=== PATIENT | female | born 1965 | race Caucasian/White ===

== ENCOUNTER 2017-01-06 06:59 | Day surgery (SDC) | payer BC ==
[2016-12-20 15:01] VITALS: BMI 43.0
--- NOTE | 2016-12-20 15:32 | PAT Medication Instructions ---
Service Date Dec 20, 2016. Current Home Medication List Albuterol Sulfate (Proair Respiclick), 2 PUFFS INH QID PRN for RN Bupropion Hcl Sr (Bupropion Hcl Sr), 400 MG PO QAM Cetirizine (Zyrtec), 10 MG PO QAM Dextromethorphan-Guaifenesin (Mucinex Dm), 1 TAB PO Q12 PRN for RN Fluoxetine (Prozac), 20 MG PO QAM Ibuprofen (Advil), 800 MG PO Q4-6H Lorazepam (Ativan), 1 MG PO HS PRN for Anxiety and/or Sedation Meclizine HCl (Meclizine HCl), 12.5 MG PO TID PRN for dizziness Multivitamin (Multivitamin), 1 TAB PO QAM Naproxen (Naprosyn), 1,000 MG PO PRN Omeprazole (Prilosec), 20 MG PO QAM Ondansetron Hcl (Zofran), 4 MG PO Q6 PRN for Nausea Probiotic Product (Probiotic), 1 TAB PO QAM Saline (Saline Nasal [place] ), 1 SPRY ARTURO QID PRN for PRN Topiramate (Topamax), 50 MG PO HS Zolpidem Tartrate (Ambien), 5-10 MG PO HS PRN for Sleep Medication Instructions For Your Scheduled Surgery Albuterol Sulfate (Proair Respiclick), 2 PUFFS INH QID PRN for RN (was given for bronchitis- no longer uses) Meclizine HCl (Meclizine HCl), 12.5 MG PO TID PRN for dizziness (not taking currently) - Hold the following medications 7-10 days prior to surgery per surgeon instructions: Naproxen (Naprosyn), 1,000 MG PO PRN Ibuprofen (Advil), 800 MG PO Q4-6H - Hold the following medications the morning of surgery: Probiotic Product (Probiotic), 1 TAB PO QAM Multivitamin (Multivitamin), 1 TAB PO QAM Cetirizine (Zyrtec), 10 MG PO QAM Dextromethorphan-Guaifenesin (Mucinex Dm), 1 TAB PO Q12 PRN for RN - Take the following medications the morning of surgery with a sip of water: Saline (Saline Nasal [place] ), 1 SPRY ARTURO QID PRN for PRN Omeprazole (Prilosec), 20 MG PO QAM Ondansetron Hcl (Zofran), 4 MG PO Q6 PRN for Nausea (only if needed) Fluoxetine (Prozac), 20 MG PO QAM Bupropion Hcl Sr (Bupropion Hcl Sr), 400 MG PO QAM Tylenol (if needed) - Take the following medications as scheduled the night before surgery: Zolpidem Tartrate (Ambien), 5-10 MG PO HS PRN for Sleep Topiramate (Topamax), 50 MG PO HS Saline (Saline Nasal [place] ), 1 SPRY ARTURO QID PRN for PRN Lorazepam (Ativan), 1 MG PO HS PRN for Anxiety and/or Sedation Ondansetron Hcl (Zofran), 4 MG PO Q6 PRN for Nausea (only if needed) Dextromethorphan-Guaifenesin (Mucinex Dm), 1 TAB PO Q12 PRN for RN Tylenol (if needed) If you have any questions please call us at [phone] or [phone] ( [place]) or [phone]
[~2017-01-06] VITALS: Ht 167.6 cm; Wt 114.0 kg
[~2017-01-06 06:59] MED LIST: ALBU18002 INH; ANT25 PO; ATV/1 PO; BUPR-269 PO; CEFAZOLIN 3000 MG/65 ML D5W IV SCH; CETI10TA84 PO; DEXT30TA7 PO; FLUO20CA35 PO; IBUP-1050 PO; LACTATED RINGER'S 1000ML 1,000 ML IV SCH; MISCCAP80 PO; MULT-506 PO; NAPR-1169 PO; ONDA4TAB46 PO; PRLSR20 PO; SALI1SPR15 NAE; TOPI25TA10 PO; ZOLP5TAB PO
[2017-01-06] MEDS ORDERED: ACET-1256 PO (07:20)
[2017-01-06 07:22] VITALS: BP 123/63; PULSE 80; TEMP 36.8; O2SAT 96; Ht 167.6 cm; Wt 114.0 kg
[2017-01-06] MEDS ORDERED: FENTANYL CITRATE INJ 50 MCG/1 ML 2 ML VIAL ONE (07:30)
[2017-01-06] MEDS ORDERED: MIDAZOLAM HCL 1 MG/ML 2ML VIAL ONE (07:30)
--- NOTE | 2017-01-06 08:24 | History & Physical Bridge Note ---
H&P Re-Evaluation Bridge Note: I have examined the patient, reviewed the History & Physical and in the interval since the performance of the History & Physical I have noted the following changes of clinical significance: No changes noted
[2017-01-06] MEDS ORDERED: BUPIVACAINE 0.5 % 5 MG/1 ML MPF 30ML VIAL ONE (08:46)
[2017-01-06] MEDS ORDERED: HEPARIN SOD (PORCINE) 1000 UNIT/ML 10 ML VIAL ONE (08:46)
[2017-01-06] MEDS: CEFAZOLIN SOD 1 GM VIAL ONE ×2 (09:08→10:31)
[2017-01-06] MEDS ORDERED: ATROPINE SULFATE 0.1 MG/ML 5ML SYR IV PRN (09:30)
[2017-01-06] MEDS ORDERED: PROMETHAZINE HCL INJ 6.25 MG in SODIUM CHLORIDE 0.9% 50ML 50 ML IV PRN (09:30)
[2017-01-06] MEDS ORDERED: EpHEDrine SULFATE INJ 50 MG/ML AMP IV PRN (09:30)
[2017-01-06] MEDS ORDERED: ONDANSETRON INJ 2 MG/ML 2 ML VIAL IV PRN ×2 (09:30→10:45)
[2017-01-06] MEDS ORDERED: DEXAMETHASONE SOD INJ 4 MG/ML VIAL ONE (09:50)
[2017-01-06] MEDS ORDERED: KETOROLAC TROMETHAMINE 30 MG/ML VIAL ONE (09:50)
[2017-01-06] MEDS ORDERED: NEOSTIGMINE METHYLSULFATE 5 MG/5 ML SYR ONE (09:50)
[2017-01-06] MEDS ORDERED: ROCURONIUM BROMIDE 10 MG/ML 5 ML VIAL ONE (09:50)
[2017-01-06] MEDS ORDERED: PROPOFOL IV EMULSION 10 MG/ML 20 ML VIAL IV ONE (09:50)
[2017-01-06] MEDS ORDERED: ONDANSETRON INJ 2 MG/ML 2 ML VIAL ONE (09:50)
[2017-01-06] MEDS ORDERED: GLYCOPYRROLATE INJ 0.2 MG/ML VIAL ONE (09:50)
[2017-01-06] MEDS ORDERED: LIDOCAINE HCL 2% 2 ML VIAL (20MG/ML) ONE (09:50)
--- NOTE | 2017-01-06 10:40 | [facility] Post Operative Brief Note ---
Immediate Operative Summary Operative Date Jan 06, 2017. Pre-Operative Diagnosis chronic cholecystitis with galbladder sludge Post-Operative Diagnosis chronic cholecystitis with galbladder sludge Procedure(s) Performed laparoscopic cholecystectomy Surgeon Dr Abel Calles Media Marketing Manager Surgeon(s) Savannah Fountain PA-C Estimated Blood Loss 7ml Findings See dictation Specimens A: Gallbladder and contents Drains None Anesthesia General Complication(s) None Disposition Recovery Room / PACU
[2017-01-06] MEDS ORDERED: SODIUM CHLORIDE 0.9% 1000ML 1,000 ML IV SCH (10:44)
[2017-01-06] MEDS ORDERED: OXYCODONE/ACETAMINOPHEN 5-325 TAB PO PRN (10:45)
--- NOTE | 2017-01-06 10:46 | Discharge Instructions ---
Discharge Instructions Date of Service Jan 06, 2017. Admission Reason for Admission: Gallbladder Sludge Discharge Discharge Diagnosis / Problem: Same Discharge Goals Goal(s): Decrease discomfort Activity Recommendations Activity Limitations: per Instructions/Follow-up section . Instructions / Follow-Up Instructions / Follow-Up Post-Surgical ~ Discharge Instructions Activity Recommendations: - lifting limitation: (10 pounds for 2 weeks), - exercise/sex/sports limit: (nonstrenuous for 2 weeks), - driving or machine use limit: (none for 1 week), - Shower/bathe limit: (may shower beginning tomorrow) Diet: - Resume previous diet SPECIAL CARE INSTRUCTIONS: - May shower in 24 hours. Let water run over area and pat dry. - Leave steri strips on for one week. - Call the surgeon's office with any questions or concerns - - (ex. temperature higher than 101 degrees F, excessive bleeding or pain). MEDICATIONS: - Resume previous medications unless instructed otherwise by your surgeon. - Ibuprofen 600 mg every 6 hours with food - Percocet 1 every 4 hours, as needed for pain FOLLOW UP VISIT: - If not already scheduled, please call the office to schedule a two week follow-up appointment. Office number Current Hospital Diet Patient's current hospital diet: Discharge Diet Recommended Diet: Regular Diet Procedures Procedures Performed: laparoscopic cholecystectomy Pending Studies Studies pending at discharge: no Medical Emergencies . Who to Call and When: Medical Emergencies: If at any time you feel your situation is an emergency, please call 911 immediately. . Non-Emergent Contact Non-Emergency issues call your: Primary Care Provider, Surgeon Call Non-Emergent contact if: your pain is worsening, wound has increased redness, wound has increased pain . "Provider Documentation" section prepared by Abel Calles. VTE Core Measure Inpt VTE Proph given/why not?: Treatment not indicated
[2017-01-06] MEDS: FENTANYL CITRATE INJ 50 MCG/1 ML 2 ML VIAL IV PRN ×4 (10:56→11:11)
--- NOTE | 2017-01-06 11:41 | Anesthesiology Progress Note ---
Anesthesia Post Op Note Date & Time Jan 06, 2017 at 11:41 Vital Signs Pain Intensity: 4 Vital Signs Past 12 Hours Date Time Temp Pulse Resp B/P Pulse Ox O2 Delivery O2 Flow Rate FiO2 01/06/17 11:30 79 18 150/86 94 Nasal Cannula 2 01/06/17 11:20 77 18 127/83 95 Nasal Cannula 2 01/06/17 11:10 82 18 147/92 97 Mask 10 01/06/17 11:00 82 18 133/86 97 Mask 10 01/06/17 10:52 36.5 83 18 127/87 96 Mask 10 01/06/17 07:22 36.8 80 20 123/63 96 Room Air Notes Mental Status: alert / awake / arousable, participated in evaluation Pt Amnestic to Procedure: Yes Nausea / Vomiting: adequately controlled Pain: adequately controlled Airway Patency, RR, SpO2: stable & adequate BP & HR: stable & adequate Hydration State: stable & adequate Anesthetic Complications: no major complications apparent
[2017-01-06 11:50] VITALS: BP 121/56; PULSE 79; TEMP 36.4; O2SAT 94
[2017-01-06 12:20] VITALS: BP 98/52; PULSE 76; O2SAT 95
[2017-01-06 12:50] VITALS: BP 104/50; PULSE 71; O2SAT 96
[2017-01-06 13:44] VITALS: BP 100/52; PULSE 80; O2SAT 95
--- NOTE | 2017-01-06 14:25 | OPERATIVE REPORT ---
DATE OF OPERATION: 01/06/2017 PREOPERATIVE DIAGNOSES: Chronic cholecystitis and gallbladder sludge. POSTOPERATIVE DIAGNOSES: Same. PROCEDURE: Laparoscopic cholecystectomy. SURGEON: Dr. Calles. TILE GRADER: Savannah Fountain PA-C. FINDINGS: The gallbladder was not dilated. There were no stones within its lumen. The cystic duct was not dilated. The liver was of normal size and contour. The visible bowel appeared normal. TECHNIQUE: The patient was given a general anesthetic and the area was prepped and draped in the usual sterile fashion. Transverse incision was made, carried down through the subcutaneous tissue to the fascia. The fascia was grasped with 2 Nolberto clamps and incised between. The posterior sheath and peritoneum were difficult to identify due to the patient's body habitus, but eventually we were able to dissect down, grasp each one of those individually, incise them and eventually, we were able to place the introducer bluntly. The abdomen was then insufflated to a pressure of 15 mmHg with carbon dioxide. The upper midline, mid clavicular, and anterior axillary introducers were placed under direct vision through small skin incisions. Traction was placed on the gallbladder beginning at the infundibulum on the lateral side, the peritoneum was opened up along the body away from the liver as well. I then worked anteriorly over the infundibulum into the triangle of Calot and dissected the gallbladder away from the liver on the medial side as well, allowing for more mobility of the infundibulum. I peeled connective tissue and lymphatics down towards the common bile duct and in doing so, I exposed the anterior surface of the cystic duct. This was then skeletonized, I was able to establish a plane behind the cystic duct and identify the cystic duct gallbladder junction. Three clips were placed on the proximal cystic duct, 1 near the gallbladder cystic duct junction and the cystic duct was divided. Further dissection was then carried out posteromedial to that in the area of the triangle of Calot, where the cystic artery was identified. This was isolated, clamped twice proximally once near the gallbladder and divided. The gallbladder was peeled off the liver bed and in doing so, there was another branch of the artery seen, draped over the body of the gallbladder. This was isolated, clamped proximally near the gallbladder and divided. The dissection of the gallbladder away from the liver was done with cautery and was done with ease. A small hole was created in the gallbladder and there was a small amount of bile spillage. The gallbladder was placed into an Endobag and brought out through the upper midline introducer with ease. That introducer was replaced and the subdiaphragmatic and subhepatic spaces were irrigated and the irrigation was removed and that was repeated until the return was clear. The gallbladder bed of the liver was inspected. There were a few areas of oozing that were easily controlled with cautery. Previously placed clips were inspected and were intact. The gallbladder bed was again inspected and there was no further bleeding. Gas was allowed to escape and removed using suction. The fascia of the umbilical introducer site was closed with interrupted 0 Vicryl and the skin of all the incisions was closed with 4-0 Monocryl in either an interrupted or running subcuticular fashion. The skin was anesthetized with 0.5% Marcaine. The skin was cleansed, dried, benzoin placed, Steri-Strips applied. Estimated blood loss was 7 mL. Sponge, needle and instrument counts were correct prior to closure. The patient tolerated surgical procedure without complication and was transferred to recovery. I attest to the content of the Intraoperative Record and any orders documented therein. Any exceptio ns are noted below.
[2017-01-06 14:50] VITALS: BP 90/53; PULSE 79; TEMP 36.5; O2SAT 93
== END 2017-01-06 15:25 | disposition home or self-care (01) ==
LOC: C.ACU 06:59
PROVIDERS: ATTEND Surgery
DX: K81.1 Chronic cholecystitis (principal); R10.11 Right upper quadrant pain; R11.0 Nausea; K82.8 Other specified diseases of gallbladder

== ENCOUNTER → 2017-05-26 | Outpatient (CLI) | payer BC ==
[~2017-05-26] MED LIST changes: -CEFAZOLIN 3000 MG/65 ML D5W IV SCH; -LACTATED RINGER'S 1000ML 1,000 ML IV SCH
--- NOTE | 2017-05-26 15:15 | DIAGNOSTIC IMAGING REPORT ---
KUB HISTORY: 51 years-old Female N20.0 Nephrolithiasis COMPARISON: IVP 10/30/2016, CT 10/28/2016 TECHNIQUE: Single supine view of the abdomen FINDINGS: Multiple bilateral nephrolithiasis redemonstrated measuring up to 3 mm. No calculi are seen along the course of either ureter. Phleboliths are again seen within the pelvis. Cholecystectomy clips are noted. The bowel gas pattern is nonobstructive. No fracture. IMPRESSION: 1. Bilateral nephrolithiasis redemonstrated without calculi seen along the course of either ureter. 2. Nonobstructive bowel gas pattern. The above report was generated using voice recognition software. It may contain grammatical, syntax or spelling errors. Electronically signed by: Romero Pierson M.D. 05/26/2017 3:14 PM Dictated Date/Time: 05/26/2017 3:12 PM
== END | disposition home or self-care (01) ==
LOC: C.RAD 14:21
PROVIDERS: ATTEND Urology
DX: N20.0 Calculus of kidney (principal)

== ENCOUNTER 2023-11-25 14:49 | Inpatient (IN) ==
[2023-11-25] MEDS ORDERED: ONDANSETRON INJ 2 MG/ML 2 ML VIAL IV STA (15:13)
[2023-11-25] MEDS ORDERED: SODIUM CHLORIDE 0.9% 500 ML IV ONE (15:13)
[2023-11-25] MEDS ORDERED: KETOROLAC TROMETHAMINE 15 MG/ML VIAL IV STA (15:17)
--- NOTE | 2023-11-25 15:18 | ED Triage Note ---
Date of Service November 25, 2023 Provider in Triage Author: Jorge Keating. History of Present Illness This patient was briefly evaluated while in triage. An abbreviated physical exam was performed. This patient is a 58-year-old Female who presents to the ED for evaluation of worsening L flank pain and nausea. Dx with 2 kidney stones last night. Took tylenol and oxycodone today without relief. No vomiting, no fevers. Physical Exam CONSTITUTIONAL: uncomfortable appearing, splinting L flank SKIN: pink, warm, dry RESPIRATORY: in no respiratory distress Initial orders for labs and / or imaging were placed and patient was placed in the waiting area until a bed is available. Please see further documentation for the full ED course.
--- NOTE | 2023-11-25 15:25 | Emergency Department Note ---
ED Provider Note History of Present Illness Chief Complaint: Kidney Stone Stated Complaint: KIDNEY STONE Time Seen by Provider: 11/25/23 15:23 Source: patient Mode of arrival: ambulatory Limitations: no limitations This patient is a 58-year-old female who presents to the emergency department for evaluation of persistent flank pain after being diagnosed with a kidney stone here last night. Patient reports that she was seen here last night and diagnosed with 2 kidney stones on the left side. She went home and was feeling okay, but states that this morning the pain came back. She tried her pain medication at home without relief. She denies any fevers/chills or vomiting. She does report a history of kidney stones and has required surgery in the past. Home Medications Medication Instructions Recorded Confirmed Type oxycodone 5 mg tablet 5 mg PO Q6H PRN pain #10 tabs 11/24/23 11/25/23 Rx Lactobacil.acidophilus-Bifido.animalis 1 cap PO DAILY 11/25/23 11/25/23 History 5 billion cell sprinkle capsule (Probiotic) albuterol sulfate 90 mcg/actuation 2 puff inhalation QID PRN 11/25/23 11/25/23 History aerosol inhaler (ProAir HFA) Shortness Of Breath Or Wheezing amitriptyline 10 mg tablet 20 mg PO HS 11/25/23 11/25/23 History bupropion HCl 100 mg tablet,12 hr 100 mg PO QAM 11/25/23 11/25/23 History sustained-release bupropion HCl 200 mg tablet,12 hr 200 mg PO QAM 11/25/23 11/25/23 History sustained-release cetirizine 10 mg tablet (Zyrtec) 10 mg PO DAILY 11/25/23 11/25/23 History cinnamon bark 500 mg capsule 500 mg PO HS 11/25/23 11/25/23 History (Cinnamon) cranberry concentrate-ascorbic 2 cap PO QAM 11/25/23 11/25/23 History acid 140 mg-100 mg capsule (Cranberry Plus Vitamin C) docusate sodium 100 mg capsule 100 mg PO DAILY 11/25/23 11/25/23 History (Colace) fluoxetine 40 mg capsule 40 mg PO QAM 11/25/23 11/25/23 History glucosamine 750 te-uzbrfktsuaa-wyj 1 tab PO 3XWK 11/25/23 11/25/23 History no1 644 mg-C 30 mg-khanh 1 mg tablet (Osteo Bi-Flex Triple Strength) lorazepam 1 mg tablet 0.5 - 1 mg PO HS PRN SLEEP/ANXIETY 11/25/23 11/25/23 History btcjyrrtlurn-atorlrpc-xpmjdk 1 tab PO HS 11/25/23 11/25/23 History tablet (Multivitamin 50 Plus tablet) omeprazole 40 mg capsule,delayed 40 mg PO DAILYBB 11/25/23 11/25/23 History release turmeric 400 mg capsule 400 mg PO HS 11/25/23 11/25/23 History Allergies Allergy/AdvReac Type Severity Reaction Status Date / Time Sulfa (Sulfonamide Allergy Intermediate HIVES Verified 11/25/23 17:38 Antibiotics) SWELLING HIGH TEMP morphine AdvReac Severe SEVERE Verified 11/25/23 17:38 MIGRAINE Past Med/Surg History Medical History FAIZAN (obstructive sleep apnea) Gastroparesis Migraine Renal stones Surgical History S/P appendectomy S/P tubal ligation H/O hand surgery "tumor excision" H/O colonoscopy " 04/02/2016 hyperplastic polyp, diverticulosis " Social History Smoking Status: Never smoker Preferred Language: Dominican Feels Safe at Home: Yes Physical Exam Vital Signs Vital Signs - 24 hr 11/25/23 15:12 11/25/23 19:05 11/25/23 19:06 Temperature 36.9 C Temperature Source Temporal Artery Scan Pulse Rate 98 H Pulse Rate [Apical] 82 79 Respiratory Rate 19 14 Respiratory Effort / Characteristics Non-Labored Spontaneous Non-Labored Spontaneous Respiratory Depth Normal Normal Respiratory Pattern Regular Regular Blood Pressure 124/64 Blood Pressure [Right Arm] 114/71 Blood Pressure Mean 84 Blood Pressure Mean [Right Arm] 85 Pulse Oximetry 92 92 94 Oxygen Delivery Method Room Air Room Air Room Air Oxygen Flow Rate Sepsis Recent Fever Within 48 Hours No Sepsis New/Unexplained Change in Mental Status N/A Sepsis Action Taken by Nursing No Action Required 11/25/23 19:33 11/25/23 19:33 Temperature Temperature Source Pulse Rate Pulse Rate [Apical] Respiratory Rate Respiratory Effort / Characteristics Respiratory Depth Respiratory Pattern Blood Pressure Blood Pressure [Right Arm] Blood Pressure Mean Blood Pressure Mean [Right Arm] Pulse Oximetry 88 L 95 Oxygen Delivery Method Room Air Nasal Cannula Oxygen Flow Rate 2 Sepsis Recent Fever Within 48 Hours Sepsis New/Unexplained Change in Mental Status Sepsis Action Taken by Nursing VITALS: Vitals are noted on the nurse's note and reviewed by myself. GENERAL: This is a 58-year-old female, in no acute distress, but slightly uncomfortable appearing. SKIN: The skin was without rashes. HEART: Regular rate and rhythm without murmurs gallops or rubs. LUNGS: Clear to auscultation bilaterally without wheezes, rales or rhonchi. ABDOMEN: Positive bowel sounds x 4. Soft, nontender to palpation. NEURO: Patient was alert and oriented to person place and time. Course Administered Medications Sodium Chloride (Nss) 1,000 mls @ 80 mls/hr IV .[id number] KENNEDY Stop: 12/25/23 17:59 Last Admin: 11/25/23 19:08 Dose: 80 mls/hr Documented By: ESTEPHANIA Discontinued Medications Sodium Chloride (Nss) 500 mls @ 999 mls/hr IV .Q31M ONE Stop: 11/25/23 15:43 Last Infusion: 11/25/23 17:50 Dose: Infused Documented By: Admin: 11/25/23 15:59 Dose: 999 mls/hr Documented By: MARIO Ceftriaxone Sodium (Rocephin) 2,000 mg in 50 mls @ 100 mls/hr IV NOW STA Stop: 11/25/23 17:26 Last Admin: 11/25/23 18:14 Dose: 100 mls/hr Documented By: TOMMIE Ketorolac Tromethamine (Ketorolac Tromethamine 15 Mg/Ml Vial) 7.5 mg IV NOW STA Stop: 11/25/23 15:18 Last Admin: 11/25/23 15:57 Dose: 7.5 mg Documented By: MARIO Ondansetron HCl (Ondansetron Inj 2 Mg/Ml 2 Ml Vial) 4 mg IV NOW STA Stop: 11/25/23 15:14 Last Admin: 11/25/23 15:57 Dose: 4 mg Documented By: MARIO Medical Decision Making Differential Diagnosis Differential diagnosis includes renal calculus, pyelonephritis, musculoskeletal pain, ruptured AAA, aortic dissection, diverticulitis, perforated viscus, bowel obstruction, biliary pathology, pancreatitis, PE, pneumonia, pneumothorax, trauma, herpes zoster, malignancy, among others. Home Medications was personally reviewed by me Laboratory Data Attestation: I reviewed the patient's lab results. 11/25/23 16:00 11/25/23 16:00 Lab Results 11/25/23 Range/Units 16:00 WBC 9.99 (4.8-10.8) K/ul RBC 4.72 (4.20-5.40) M/uL Hgb 13.1 (12.0-16.0) g/dl Hct 40.3 (37.0-47.0) % MCV 85.4 (80.0-100.0) fL MCH 27.8 (25.0-34.0) pg MCHC 32.5 (32.0-36.0) g/dL RDW Std Deviation 45.7 (36.4-46.3) fL RDW Coeff of Harsh 14.8 H (11.5-14.5) % Plt Count 233 (130-400) K/uL MPV 8.6 L (9.4-12.4) fL Immature Gran % (Auto) 0.2 % Neut % (Auto) 76.7 % Lymph % (Auto) 15.4 % Williamson % (Auto) 5.7 % Eos % (Auto) 1.6 % Baso % (Auto) 0.4 % Neut # (Auto) 7.66 H (1.40-6.50) K/uL Lymph # (Auto) 1.54 (1.20-3.40) K/uL Williamson # (Auto) 0.57 (0.11-0.59) K/uL Eos # (Auto) 0.16 (0.00-0.50) K/uL Baso # (Auto) 0.04 (0.00-0.20) K/uL Immature Gran # (Auto) 0.02 (0.01-0.20) K/uL Sodium 135 L (136-145) mmol/L Potassium 3.9 (3.5-5.1) mmol/L Chloride 104 (98-107) mmol/L Carbon Dioxide 24 (21-32) mmol/L Anion Gap 7 (3-11) BUN 20 (6-23) mg/dl Creatinine 1.63 H D (0.6-1.2) mg/dl Est Cr Clr Drug Dosing 52.6 ml/min Est GFR ( Amer) 39.8 ml/min Est GFR (Non-Af Amer) 34.4 ml/min BUN/Creatinine Ratio 12.3 (10-20) Glucose 104 H (70-99(Fasting)) mg/dl Calcium 9.3 (8.6-10.3) mg/dl Total Bilirubin 0.4 (0.2-1.0) mg/dl AST 23 (13-39) U/L ALT 25 (7-52) U/L Alkaline Phosphatase 69 (34-104) U/L Total Protein 7.4 (6.0-8.3) gm/dl Albumin 4.3 (3.4-5.0) gm/dl Globulin 3.1 (2.5-4.0) gm/dl Albumin/Globulin Ratio 1.4 (0.9-2) Imaging Data Attestation: I personally reviewed and interpreted this imaging study as follows: Radiologist's Impression: KUB X-Ray 11/25/23 15:13 KUB HISTORY: Chronic left flank pain known L ureteral stones, ongoing pain COMPARISON: CT abdomen and pelvis 11/24/2023 FINDINGS: Nonobstructive bowel gas pattern. Cholecystectomy. Renal shadows are partially obscured by bowel gas. Bilateral renal calculi redemonstrated measuring up to approximately 4 mm. 4 mm calculus of the left ureter is noted at the level of L3, similar positioning to the prior study. The 2 mm left ureteral calculus is likely just superior to this. Numerous phleboliths of the pelvis are again noted. No pneumoperitoneum or pneumatosis. No fracture. IMPRESSION: 1. No significant distal migration of the left ureteral calculi measuring up to 4 mm compared to yesterday's CT exam. 2. Bilateral nephrolithiasis. ACT 112: Negative or not required by law. The above report was generated using voice recognition software. It may contain grammatical, syntax or spelling errors. Electronically signed by: Ben Pierson M.D. 11/25/2023 4:19 PM MDM Narrative This patient is a 58-year-old female who presents to the emergency department for evaluation of continued flank pain after being diagnosed with a kidney stone last night. Patient was found to have 2 calculi in the proximal left ureter on CT scan. KUB performed today shows no movement of the stones. Creatinine mildly elevated 1.6. Patient has been treated with Toradol, fluids and Zofran in triage and did feel better after these. However, given return visit and pain uncontrolled with oral medications at home I do think patient requires admission. Case discussed with urology on-call, Dr. Rogers who agreed and will consult. Case discussed with the [facility] who agreed to evaluate the patient for further care Impression Left ureteral calculus Discharge Plan Visit Data Chief Complaint: Kidney Stone Stated Complaint: KIDNEY STONE ED Provider: Suresh Freeman ED Midlevel Provider: Tari Sam Discharge Problem: Left ureteral calculus Forms Stand Alone Forms: My [facility] Prescriptions Prescriptions: No Action fluoxetine 40 mg capsule 40 mg PO QAM cetirizine [Zyrtec] 10 mg Tablet 10 mg PO DAILY Cranberry Plus Vitamin C 140-100 mg Capsule 2 cap PO QAM omeprazole 40 mg capsule,delayed release(DR/EC) 40 mg PO DAILYBB bupropion HCl 100 mg tablet sustained-release 12 hr 100 mg PO QAM Rx Instructions: TOTAL DOSE 300 MG--TAKES WITH 200 MG TAB. amitriptyline 10 mg tablet 20 mg PO HS docusate sodium [Colace] 100 mg Capsule 100 mg PO DAILY lorazepam 1 mg Tablet 0.5 - 1 mg PO HS PRN (Reason: SLEEP/ANXIETY) albuterol sulfate [ProAir HFA] 90 mcg/actuation Hfa Aerosol Inhaler 2 puff INHALATION QID PRN (Reason: Shortness Of Breath Or Wheezing) Multivitamin 50 Plus Tablet 1 tab PO HS bupropion HCl 200 mg tablet sustained-release 12 hr 200 mg PO QAM Rx Instructions: TOTAL DOSE 300 MG--TAKES WITH 100 MG TAB. cinnamon bark [Cinnamon] 500 mg Capsule 500 mg PO HS Probiotic 5 billion cell Capsule, Sprinkle 1 cap PO DAILY Osteo Bi-Flex Triple Strength 750 mg-644 mg- 30 mg-1 mg Tablet 1 tab PO 3XWK Rx Instructions: MON, WED, & FRI turmeric 400 mg Capsule 400 mg PO HS oxycodone 5 mg tablet 5 mg PO Q6H PRN (Reason: pain) Qty: 10 0RF Rx Instructions: Initial Treatment Referrals Referrals: Abena Harden MD [Primary Care Provider] -
[2023-11-25 16:12] LABS: Basophils # (auto) 0.04 K/uL (0.00-0.20); Basophils % (auto) 0.4 %; Eosinophils # (auto) 0.16 K/uL (0.00-0.50); Eosinophils % (auto) 1.6 %; Hematocrit (blood only) 40.3 % (37.0-47.0); Hemoglobin 13.1 g/dl (12.0-16.0); Immature Granulocytes # (auto) 0.02 K/uL (0.01-0.20); Immature Granulocytes % (auto) 0.2 %; Lymphocytes # (auto) 1.54 K/uL (1.20-3.40); Lymphocytes % (auto) 15.4 %; Mean Corpuscular Hemoglobin 27.8 pg (25.0-34.0); Mean Corpuscular Hgb Conc 32.5 g/dL (32.0-36.0); Mean Corpuscular Volume 85.4 fL (80.0-100.0); Mean Platelet Volume 8.6 fL (9.4-12.4); Monocytes # (auto) 0.57 K/uL (0.11-0.59); Monocytes % (auto) 5.7 %; Neutrophils # (auto) 7.66 K/uL (1.40-6.50); Neutrophils % (auto) 76.7 %; Platelet Count 233 K/uL (130-400); RDW Coefficient of Variation 14.8 % (11.5-14.5); RDW Standard Deviation 45.7 fL (36.4-46.3); Red Blood Count 4.72 M/uL (4.20-5.40); White Blood Count 9.99 K/ul (4.8-10.8)
--- NOTE | 2023-11-25 16:20 | XRay Report ---
KUB HISTORY: Chronic left flank pain known L ureteral stones, ongoing pain COMPARISON: CT abdomen and pelvis 11/24/2023 FINDINGS: Nonobstructive bowel gas pattern. Cholecystectomy. Renal shadows are partially obscured by bowel gas. Bilateral renal calculi redemonstrated measuring up to approximately 4 mm. 4 mm calculus o f the left ureter is noted at the level of L3, similar positioning to the prior study. The 2 mm left ureteral calculus is likely just superior to this. Numerous phleboliths of the pelvis are again noted . No pneumoperitoneum or pneumatosis. No fracture. IMPRESSION: 1. No significant distal migration of the left ureteral calculi measuring up to 4 mm compared to aminat felipe's CT exam. 2. Bilateral nephrolithiasis. ACT 112: Negative or not required by law. The above report was generated using voice recognition software. It may contain grammatical, syntax o r spelling errors. Electronically signed by: eBn Pierson M.D. 11/25/2023 4:19 PM
[2023-11-25 16:26] LABS: Albumin Level 4.3 gm/dl (3.4-5.0); Bilirubin,Total 0.4 mg/dl (0.2-1.0); Calcium 9.3 mg/dl (8.6-10.3); Potassium 3.9 mmol/L (3.5-5.1)
[2023-11-25 16:32] LABS: Albumin Globulin Ratio 1.4 (0.9-2); BUN Creatinine Ratio 12.3 (10-20); Creatinine Clr Calc Pharmacy 52.6 ml/min; Est GFR (African American) 39.8 ml/min; Est GFR (Non-African American) 34.4 ml/min; Globulin 3.1 gm/dl (2.5-4.0); Total Protein 7.4 gm/dl (6.0-8.3)
[2023-11-25] MEDS ORDERED: cefTRIAXone SODIUM 2,000 MG/50 ML BAG IV STA (16:57)
[2023-11-25] MEDS ORDERED: ACETAMINOPHEN 1,000 MG/100 ML VIAL IV PRN (17:40)
[2023-11-25] MEDS ORDERED: POLYETHYLENE (MIRALAX) 17 GM PACK PO PRN (17:47)
--- NOTE | 2023-11-25 17:53 | History & Physical Report ---
Date of Service November 25, 2023 Assessment & Plan (1) Renal calculus, left: (2) Kidney stone: Plan: NADEEN on CKD (hx of CKD 3a) UTI Patient presents with left ureteral renal stone Mild left hydronephrosis Creatinine elevated 1.6, baseline about 1.1 Urine culture positive for GNB - started on ceftriaxone, will continue, follow final cultx Urology consulted cont. IVF, monitor BMP Flomax pain control, antiemetic npo after MN (3) FAIZAN (obstructive sleep apnea): Plan: FAIZAN - uses home cpap, continue hs Morbid obesity, BMI 42- lifestyle modification discussed - has appointment scheduled w/ GI/ weight management tmrw actually - will need to re-schedule, follow up as outpt Prediabetes - A1c 5.9% - diet management and plan for weight loss as above GERD, continue omeprazole Depression - cont. home meds DVT ppx - SCDs History of Present Illness Chief Complaint: Flank pain, renal colic Primary Care Provider: Abena Harden MD Patient is a 58-year-old female, morbidly obese, with history of GERD, stage III CKD, history of renal stones, history of migraine with aura, asthma, seasonal allergic rhinitis, FAIZAN, prediabetes, depression who presents with flank pain, and diagnosed with renal stone, NADEEN. Patient presented in the ED yesterday, with flank pain and CT abdomen was obtained, showing renal stone in left ureter, creatinine at that time was 1.2. UA was obtained. At that time she was discharged home with medications, and recommendations to follow-up with urology. Today she presents back to the emergency room as her pain was not controlled. She also had some nausea/ vomiting. Urine culture is positive for bacteria and she was started on Rocephin. Creatinine is now worsened at 1.6. CT also showed some mild L hydronephrosis yesterday. She denies any fever, chills, chest pain or shortness of breath. She has hx of renal stones and urological procedures in the past. ED provider contacted urology. Allergies Allergy/AdvReac Type Severity Reaction Status Date / Time Sulfa (Sulfonamide Allergy Intermediate HIVES Verified 11/25/23 17:38 Antibiotics) SWELLING HIGH TEMP morphine AdvReac Severe SEVERE Verified 11/25/23 17:38 MIGRAINE Home Medications Medication Instructions Recorded Confirmed Type oxycodone 5 mg tablet 5 mg PO Q6H PRN pain #10 tabs 11/24/23 11/25/23 Rx Lactobacil.acidophilus-Bifido.animalis 1 cap PO DAILY 11/25/23 11/25/23 History 5 billion cell sprinkle capsule (Probiotic) albuterol sulfate 90 mcg/actuation 2 puff inhalation QID PRN 11/25/23 11/25/23 History aerosol inhaler (ProAir HFA) Shortness Of Breath Or Wheezing amitriptyline 10 mg tablet 20 mg PO HS 11/25/23 11/25/23 History bupropion HCl 100 mg tablet,12 hr 100 mg PO QAM 11/25/23 11/25/23 History sustained-release bupropion HCl 200 mg tablet,12 hr 200 mg PO QAM 11/25/23 11/25/23 History sustained-release cetirizine 10 mg tablet (Zyrtec) 10 mg PO DAILY 11/25/23 11/25/23 History cinnamon bark 500 mg capsule 500 mg PO HS 11/25/23 11/25/23 History (Cinnamon) cranberry concentrate-ascorbic 2 cap PO QAM 11/25/23 11/25/23 History acid 140 mg-100 mg capsule (Cranberry Plus Vitamin C) docusate sodium 100 mg capsule 100 mg PO DAILY 11/25/23 11/25/23 History (Colace) fluoxetine 40 mg capsule 40 mg PO QAM 11/25/23 11/25/23 History glucosamine 750 ev-sxfffvvazaa-imx 1 tab PO 3XWK 11/25/23 11/25/23 History no1 644 mg-C 30 mg-khanh 1 mg tablet (Osteo Bi-Flex Triple Strength) lorazepam 1 mg tablet 0.5 - 1 mg PO HS PRN SLEEP/ANXIETY 11/25/23 11/25/23 History dqgpyfptbsmq-srgobmnp-bnpxoq 1 tab PO HS 11/25/23 11/25/23 History tablet (Multivitamin 50 Plus tablet) omeprazole 40 mg capsule,delayed 40 mg PO DAILYBB 11/25/23 11/25/23 History release turmeric 400 mg capsule 400 mg PO HS 11/25/23 11/25/23 History Past Med/Surg History Medical History FAIZAN (obstructive sleep apnea) Gastroparesis Migraine Renal stones Surgical History S/P appendectomy S/P tubal ligation H/O hand surgery "tumor excision" H/O colonoscopy " 04/02/2016 hyperplastic polyp, diverticulosis " Social History Smoking Status: Never smoker Preferred Language: Faroese Feels Safe at Home: Yes Review of Systems Review of Systems: All systems reviewed & are unremarkable except as noted in Subjective Physical Exam Constitutional: WD/WN, vitals as above (morbidly obese F in mild distress d/t pain) Eyes: PERRL, conjunctivae normal, anicteric sclerae ENMT: external ear and nose normal, oropharynx normal Neck: + thick neck Respiratory: normal respiratory effort, lungs clear to auscultation Cardiovascular: RRR, no murmur, no edema Chest (Breasts): Chest: normal inspection of chest Gastrointestinal (Abdomen): Inspection/Auscultation: normal bowel sounds Percussion/Palpation: + abdomen tender and abdomen soft obese abdomen, +LLQ pain, + L flank pain Musculoskeletal: no cyanosis or clubbing, extremities motor strength 5/5 Skin: no rashes, warm and dry Neurologic: PERRL, EOMI, accommodation nl, no face palsy, no dysarthria Psychiatric: A+Ox3, euthymic affect Lymphatic: no lymphedema Results & Data Results & Data Vital Signs (Past 12 Hours) Vital Signs Temp Pulse Resp BP Pulse Ox O2 Del Method 11/25/23 15:12 36.9 C 98 H 19 124/64 92 Room Air Laboratory Results 11/25/23 Range/Units 16:00 WBC 9.99 (4.8-10.8) K/ul RBC 4.72 (4.20-5.40) M/uL Hgb 13.1 (12.0-16.0) g/dl Hct 40.3 (37.0-47.0) % MCV 85.4 (80.0-100.0) fL MCH 27.8 (25.0-34.0) pg MCHC 32.5 (32.0-36.0) g/dL RDW Std Deviation 45.7 (36.4-46.3) fL RDW Coeff of Harsh 14.8 H (11.5-14.5) % Plt Count 233 (130-400) K/uL MPV 8.6 L (9.4-12.4) fL Immature Gran % (Auto) 0.2 % Neut % (Auto) 76.7 % Lymph % (Auto) 15.4 % [place] % (Auto) 5.7 % Eos % (Auto) 1.6 % Baso % (Auto) 0.4 % Neut # (Auto) 7.66 H (1.40-6.50) K/uL Lymph # (Auto) 1.54 (1.20-3.40) K/uL [place] # (Auto) 0.57 (0.11-0.59) K/uL Eos # (Auto) 0.16 (0.00-0.50) K/uL Baso # (Auto) 0.04 (0.00-0.20) K/uL Immature Gran # (Auto) 0.02 (0.01-0.20) K/uL Sodium 135 L (136-145) mmol/L Potassium 3.9 (3.5-5.1) mmol/L Chloride 104 (98-107) mmol/L Carbon Dioxide 24 (21-32) mmol/L Anion Gap 7 (3-11) BUN 20 (6-23) mg/dl Creatinine 1.63 H D (0.6-1.2) mg/dl Est Cr Clr Drug Dosing 52.6 ml/min Est GFR ( Amer) 39.8 ml/min Est GFR (Non-Af Amer) 34.4 ml/min BUN/Creatinine Ratio 12.3 (10-20) Glucose 104 H (70-99(Fasting)) mg/dl Calcium 9.3 (8.6-10.3) mg/dl Total Bilirubin 0.4 (0.2-1.0) mg/dl AST 23 (13-39) U/L ALT 25 (7-52) U/L Alkaline Phosphatase 69 (34-104) U/L Total Protein 7.4 (6.0-8.3) gm/dl Albumin 4.3 (3.4-5.0) gm/dl Globulin 3.1 (2.5-4.0) gm/dl Albumin/Globulin Ratio 1.4 (0.9-2) Diagnostic Findings CT abdomen/ pelvis FINDINGS: Lung bases: Unremarkable. No mass. No consolidation. ABDOMEN: Liver: Hepatic steatosis. Hepatomegaly. Small calcification in the liver. Gallbladder and bile ducts: Unremarkable. No calcified stones. No ductal dilation. Pancreas: Unremarkable. No ductal dilation. Spleen: Unremarkable. No splenomegaly. Adrenals: Stable nonspecific small left adrenal nodule. Kidneys and ureters: 2 stones in the proximal left ureter measuring approximately 2 mm and 4 mm. Mild left hydroureteronephrosis. Additional left renal stones. Small nonobstructing left renal stones. No hydronephrosis or ureteral stone on the right. Probable small right renal cyst. Stomach and bowel: Evaluation of the stomach is limited by underdistention. No mucosal thickening. No bowel obstruction or inflammation. PELVIS: Appendix: Appendix is not visualized on this exam. Bladder: Unremarkable. No stones. Reproductive: Unremarkable as visualized. ABDOMEN and PELVIS: Intraperitoneal space: Unremarkable. No free air. No significant fluid collection. Bones/joints: Degenerative changes of the spine. No acute fracture. No dislocation. Soft tissues: Small fat-containing umbilical hernia. Vasculature: Phleboliths in the pelvis. No abdominal aortic aneurysm. Lymph nodes: Unremarkable. No enlarged lymph nodes. IMPRESSION: 1. 2 stones in the proximal left ureter measuring approximately 2 mm and 4 mm. Mild left hydroureteronephrosis. Additional left renal stones. 2. Small nonobstructing left renal stones. No hydronephrosis or ureteral stone on the right. Code Status & VTE Plan VTE Prophylaxis Plan VTE Prophylaxis will be ordered: Yes
[2023-11-25] MEDS: SODIUM CHLORIDE 0.9% 1,000 ML IV SCH (19:08)
--- NOTE | 2023-11-25 19:27 | Urology Consultation ---
Date of Consultation November 25, 2023 Assessment & Plan (1) Renal calculus, left: The patient has been admitted on the hospital service. From a urologic perspective we recommend proceeding as follows: Provide analgesics provide antiemetics Follow serial labs Provide IV fluid for hydration Provide Flomax for expulsive therapy The patient has had a urine culture on 11/24/2023 that pulmonary leave shows gram-negative bacilli. She has received antibiotics in form of Rocephin thus far in the emergency department. Antibiotic should continue and can be tailored based on culture results Would recommend the patient be made n.p.o. after midnight tonight. If she continues to have issues with her kidney stones upon reevaluation tomorrow morning consideration be given to performing cystoscopy At the present time the patient is noted to be afebrile without tachycardia or hypotension. She also does not exhibit leukocytosis and therefore feel a trial of conservative passage is warranted Additional recommendations be forthcoming based on her clinical course as unfolds History of Present Illness Reason for Consultation: Nephrolithiasis History of Present Illness This is a 58-year-old female who was seen in the emergency department on 11/24/2023. At that time patient presented secondary to left flank pain that started earlier in the day. Patient had associated nausea without vomiting. She denied any fevers, shakes, or chills. She denied any dysuria or hematuria. Patient notes that she did have a history of kidney stones in the past. She has successfully passed some kidney stones without intervention but she has had cystoscopy in the past. She notes that she previously followed with Dr. Rosalino Rick when he was a member of [facility]. Patient did have plans to follow-up with [facility] urology later this month. During patient's emergency department visit on 11/24/2023 she did undergo a chest x-ray that showed no evidence of pneumonia. A CT scan of the abdomen and pelvis showed that she had 2 kidney stones in the proximal left ureter measuring 2 and 4 mm respectively. There is mild left hydronephrosis on the study. Labs during this visit include a CBC were white blood cell count, hemoglobin, hematocrit, and platelet count are all within the normal range. Chemistry profile showed sodium and potassium along with the BUN were normal. There is a slight elevation of her creatinine at 1.2. Urinalysis at this time was negative for nitrites and leukocyte Estrace. There is no significant pyuria noted but she was noted to have 2+ bacteria. The patient returned to the emergency department this evening secondary to recurrence of her left flank pain. She notes again the pain is in the left flank with some radiation to her abdomen. She denies any vomiting but did have some nausea. She denies any fevers, shakes, or chills. She had 1 episode of dysuria but denies any urinary frequency or additional dysuria. She says that her urine did appear somewhat discolored but she did not note any gross hematuria. Since patient is return to [facility] this evening she has had a KUB that showed a left ureteral kidney stone measuring up to 4 mm which correlates to the findings on the previous CT scan. Labs today include a CBC were white blood cell count, hemoglobin, hematocrit, platelet count are normal. Chemistry profile shows sodium is 135 with a normal potassium. Her BUN is noted to be normal and she had a slight increase of her creatinine to 1.6. At the time of my interview she was resting comfortably bed and she was no distress. Allergies Allergy/AdvReac Type Severity Reaction Status Date / Time Sulfa (Sulfonamide Allergy Intermediate HIVES Verified 11/25/23 17:38 Antibiotics) SWELLING HIGH TEMP morphine AdvReac Severe SEVERE Verified 11/25/23 17:38 MIGRAINE Home Medications Medication Instructions Recorded Confirmed Type oxycodone 5 mg tablet 5 mg PO Q6H PRN pain #10 tabs 11/24/23 11/25/23 Rx Lactobacil.acidophilus-Bifido.animalis 1 cap PO DAILY 11/25/23 11/25/23 History 5 billion cell sprinkle capsule (Probiotic) albuterol sulfate 90 mcg/actuation 2 puff inhalation QID PRN 11/25/23 11/25/23 History aerosol inhaler (ProAir HFA) Shortness Of Breath Or Wheezing amitriptyline 10 mg tablet 20 mg PO HS 11/25/23 11/25/23 History bupropion HCl 100 mg tablet,12 hr 100 mg PO QAM 11/25/23 11/25/23 History sustained-release bupropion HCl 200 mg tablet,12 hr 200 mg PO QAM 11/25/23 11/25/23 History sustained-release cetirizine 10 mg tablet (Zyrtec) 10 mg PO DAILY 11/25/23 11/25/23 History cinnamon bark 500 mg capsule 500 mg PO HS 11/25/23 11/25/23 History (Cinnamon) cranberry concentrate-ascorbic 2 cap PO QAM 11/25/23 11/25/23 History acid 140 mg-100 mg capsule (Cranberry Plus Vitamin C) docusate sodium 100 mg capsule 100 mg PO DAILY 11/25/23 11/25/23 History (Colace) fluoxetine 40 mg capsule 40 mg PO QAM 11/25/23 11/25/23 History glucosamine 750 gy-manndgujbdi-gwn 1 tab PO 3XWK 11/25/23 11/25/23 History no1 644 mg-C 30 mg-khanh 1 mg tablet (Osteo Bi-Flex Triple Strength) lorazepam 1 mg tablet 0.5 - 1 mg PO HS PRN SLEEP/ANXIETY 11/25/23 11/25/23 History ymrptfkbcdum-wcmvvfku-ynkfgs 1 tab PO HS 11/25/23 11/25/23 History tablet (Multivitamin 50 Plus tablet) omeprazole 40 mg capsule,delayed 40 mg PO DAILYBB 11/25/23 11/25/23 History release turmeric 400 mg capsule 400 mg PO HS 11/25/23 11/25/23 History Patient History Medical History FAIZAN (obstructive sleep apnea) Gastroparesis Migraine Renal stones Surgical History S/P appendectomy S/P tubal ligation H/O hand surgery "tumor excision" H/O colonoscopy " 04/02/2016 hyperplastic polyp, diverticulosis " Social History Smoking Status: Never smoker Preferred Language: Samoan Feels Safe at Home: Yes Review of Systems Constitutional: no fever and no chills Eyes: + corrective lenses Ear, Nose, Mouth, Throat: no hearing loss Respiratory: no cough and no dyspnea Cardiovascular: no chest pain Gastrointestinal: + abdominal pain (Radiating from left fl ank) Genitourinary: as per Subjective / HPI Musculoskeletal: + back pain (Left flank) Integumentary: no rash Neurologic: no localized weakness Physical Exam Constitutional: WD/WN, vitals as above Eyes: Wears glasses ENMT: Ears: no hearing impairment and no external ear abnormality Mouth: no oropharynx abnormality Neck: trachea midline Respiratory: normal respiratory effort; no respiratory distress and no labored breathing Cardiovascular: Rate/Rhythm: regular rate and regular rhythm Gastrointestinal (Abdomen): Soft, nondistended, with minimal pain to palpation on the left side. There is no rebound tenderness or guarding Musculoskeletal: No calf tenderness Skin: no rashes Neurologic: moves all extremities Psychiatric: A+Ox3, euthymic affect Genitourinary: No CVA tenderness on the right. Minimal CVA tenderness with percussion on the left Results & Data Vital Signs (Past 12 Hours) Vital Signs Temp Pulse Pulse Resp BP BP Pulse Ox 11/25/23 19:06 79 94 11/25/23 19:05 82 14 114/71 92 11/25/23 15:12 36.9 C 98 H 19 124/64 92 O2 Del Method 11/25/23 19:06 Room Air 11/25/23 19:05 Room Air 11/25/23 15:12 Room Air PG Care Time/CCT Total # of Minutes Spent Total Time Spent with Patient: Total time spent is greater than 50% in coordination of care (as documented) at patient's floor/unit and/or counseling patient: Coding Level of Care Code 35893 IN/OBS CONSULT LVL 5,80M Diagnoses Renal calculus, left N20.0
[2023-11-25] MEDS: TAMSULOSIN HCL 0.4 MG CAP PO SCH (20:34)
[2023-11-25] MEDS: ACETAMINOPHEN 325 MG TAB PO PRN (20:37)
[2023-11-25] MEDS ORDERED: ALBUTEROL HFA 8 GM INHALER INH PRN (21:36)
[2023-11-25] MEDS ORDERED: oxyCODONE HCL IR 5 MG TAB (IMMEDIATE RELEASE) PO PRN (21:36)
[2023-11-25 22:22] LABS: Appearance Urine Clear (Clear); Bacteria Urine Automated Negative (Negative); Bilirubin Urine Negative (Negative); Blood Urine 2+ (Negative); Cast Urine Automated 0 /lpf (0-5); Color Urine Yellow; Glucose Urine UA Negative (Negative); Ketones Urine Negative (Negative); Leukocyte Esterase Urine 1+ (Negative); Nitrite Urine Negative (Negative); Protein Urine Negative (Negative); Urobilinogen Urine Negative (Negative)
[2023-11-25] MEDS: AMITRIPTYLINE HCL 10 MG TAB PO SCH (22:32)
[2023-11-26] MEDS: ACETAMINOPHEN 325 MG TAB PO PRN (06:01)
[2023-11-26] MEDS: PANTOprazole 40 MG TAB PO SCH (06:02)
[2023-11-26] MEDS: SODIUM CHLORIDE 0.9% 1,000 ML IV SCH ×2 (07:16→21:22)
[2023-11-26 07:38] LABS: Hematocrit (blood only) 36.4 % (37.0-47.0); Hemoglobin 11.3 g/dl (12.0-16.0); Mean Corpuscular Hemoglobin 27.4 pg (25.0-34.0); Mean Corpuscular Volume 88.3 fL (80.0-100.0); Mean Platelet Volume 8.7 fL (9.4-12.4); Platelet Count 183 K/uL (130-400); RDW Coefficient of Variation 15.1 % (11.5-14.5); RDW Standard Deviation 48.6 fL (36.4-46.3); Red Blood Count 4.12 M/uL (4.20-5.40); White Blood Count 5.51 K/ul (4.8-10.8)
[2023-11-26 07:48] LABS: Calcium 8.7 mg/dl (8.6-10.3); Potassium 4.1 mmol/L (3.5-5.1)
[2023-11-26 07:53] LABS: BUN Creatinine Ratio 11.2 (10-20); Creatinine Clr Calc Pharmacy 58.1 ml/min; Est GFR (African American) 46.7 ml/min; Est GFR (Non-African American) 40.3 ml/min; Phosphorus 3.8 mg/dl (2.5-4.9)
[2023-11-26] MEDS: DOCUSATE SODIUM 100 MG CAP PO SCH (08:15)
[2023-11-26] MEDS: FLUoxetine HCL 20 MG CAP PO SCH (08:15)
[2023-11-26] MEDS: buPROPion XL 300 MG TABCR PO SCH (08:15)
[2023-11-26] MEDS: ADVANCED PROBIOTIC 1250 MG CAPSULE PO SCH (08:16)
[2023-11-26] MEDS ORDERED: buPROPion SR 100 MG TABCR PO SCH (09:00)
[2023-11-26] MEDS ORDERED: SUMAtriptan succinate 50 MG TAB PO ONE (09:38)
--- NOTE | 2023-11-26 09:54 | Urology Progress Note ---
Date of Service November 26, 2023 Assessment & Plan (1) Left ureteral calculus: (2) UTI (urinary tract infection): (3) Flank pain: Plan 58yo F admitted with intractable left flank pain, NADEEN, and concern for infection. CT abdomen pelvis from 11/24/23 showed that she had 2 stones in the proximal left ureter measuring 2 and 4 mm respectively with mild left hydronephrosis. KUB 11/25/23 shows no significant distal migration of the left ureteral calculi measuring up to 4 mm compared to prior CT exam. Afebrile and hemodynamically stable Labs No leukocytosis, creatinine 1.43 today. Continue to trend. Urine culture from 11/24/2023 preliminary with E. coli. On ceftriaxone. We discussed acute stone management with cystoscopy and stent placement. Ureteral stents were discussed as well as postoperative issues and pain management. She is aware a second procedure will be needed for stone treatment. Risks and benefits were discussed. All questions were answered. Given her left-sided pain, NADEEN, and concern for infection we will plan to proceed to OR today for cystoscopy and left ureteral stent placement. Risks and benefits were discussed as per consent. Continue supportive care and pain management as needed. Covered with scheduled IV ceftriaxone. Keep NPO. Urology will follow. Admission and Anticipated Discharge Date Admission Date: November 25, 2023 Supervising Physician Co-Signing Physician Notes Discussed patient with MELY. Agree with plan. Proceed to OR for ureteral stent placement. Subjective Patient examined at bedside this AM. Awake, resting in bed on arrival. No acute distress. Has been NPO. Denies fever, chills, nausea, vomiting. Voiding without issue. Still with left sided pain, managing with medication. Review of Systems Constitutional: as per Subjective / HPI Gastrointestinal: as per Subjective / HPI Genitourinary: as per Subjective / HPI Physical Exam Constitutional: no acute distress Respiratory: no respiratory distress and no labored breathing Neurologic: moves all extremities and awake Psychiatric: A+Ox3, euthymic affect Results & Data Vital Signs (Past 12 Hours) Vital Signs Temp Pulse Resp BP BP Pulse Ox O2 Del Method 11/26/23 07:21 36.8 C 78 18 108/63 93 CPAP 11/25/23 22:15 95 Nasal Cannula 11/25/23 21:58 36.7 C 93 H 16 130/76 91 Room Air O2 Flow Rate 11/26/23 07:21 11/25/23 22:15 2 11/25/23 21:58 PG Care Time/CCT Total # of Minutes Spent Total Time Spent with Patient: Total time spent is greater than 50% in coordination of care (as documented) at patient's floor/unit and/or counseling patient: Coding Level of Care Code 83210 SUB INP/OBS CARE 2/35MIN Diagnoses Left ureteral calculus N20.1 UTI (urinary tract infection) N39.0 Flank pain R10.9
[2023-11-26] MEDS ORDERED: HYDROmorphone INJ 0.5 MG/0.5 ML SYR IV STA (11:29)
[2023-11-26] MEDS ORDERED: HYDROmorphone INJ 0.5 MG/0.5 ML SYR IV PRN (11:31)
[2023-11-26] MEDS ORDERED: ACETAMINOPHEN 1,000 MG/100 ML VIAL IV PRN (11:31)
[2023-11-26] MEDS ORDERED: HYDROmorphone INJ 0.5 MG/0.5 ML SYR ONE (11:33)
[2023-11-26] MEDS ORDERED: oxyCODONE HCL IR 5 MG TAB (IMMEDIATE RELEASE) PO STA (11:51)
--- NOTE | 2023-11-26 13:17 | Hospitalist Progress Note ---
Date of Service November 26, 2023 Assessment & Plan (1) Flank pain: (2) UTI (urinary tract infection): (3) FAIZAN (obstructive sleep apnea): (4) Left ureteral calculus: Plan Pt is a 58yoF with PMhx significant for history of kidney stones, GERD, stage III CKD, history of migraine with aura, asthma, seasonal allergic rhinitis, FAIZAN, prediabetes, depression who presented with flank pain and was admitted with two stones in the left proximal ureter and left sided hydroureteronephrosis. Renal calculus, left Hydroureteronephrosis, left Flank pain, left Pt with significant left sided pain, in tears on 11/26 CT abd/pelvis noted two stones in the left proximal ureter and left sided hydroureteronephrosis Pain control, antiemetics Urology consulted- appreciate recs -s/p left sided stent placement on 11/26 -recommending discharge with 14 days of abx (see below) UTI UA suggestive of infection Urine cx growing E coli sensitive to rocephin Pt currently on rocephin, will transition to po cefdinir x total of 14 days on d c NADEEN on CKD (hx of CKD 3a) Creatinine elevated to 1.6 Baseline about 1.1 Cr downtrending but still elevated Avoid nephrotoxic meds/contrast as able Continue to monitor Chronic Medical problems: FAIZAN - uses home cpap, continue hs Morbid obesity, BMI 42- lifestyle modification discussed with previous provider- had appointment scheduled w/ GI/ weight management while hospitalized- will need to re-schedule, follow up as outpt Prediabetes - A1c 5.9% - diet management and plan for weight loss as above GERD, continue omeprazole Mood disorder - cont. home meds Migraines- continue home meds, required dose of sumatriptan while hospitalized Diet: Regular DVT ppx - SCDs Dispo: Home in AM Admission and Anticipated Discharge Date Admission Date: November 25, 2023 Subjective Pt seen while in acute distress with 10/10 left flank/lower abd pain. Was in tears. had previously requested by her nurse medication for a headache. Review of Systems Review of Systems: All systems reviewed & are unremarkable except as noted in Subjective Physical Exam Physical Exam: General: Alert, oriented. In distress Psych: tearful mood and affect HEENT: NC/AT CV: RRR Resp: no increased effort of breathing Abdomen: tender Extremities: No edema in lower extremities bilaterally. Results & Data Results & Data Vital Signs (Past 12 Hours) Vital Signs Temp Pulse Resp BP Pulse Ox O2 Del Method 11/26/23 07:21 36.8 C 78 18 108/63 93 CPAP
[2023-11-26] MEDS ORDERED: ONDANSETRON INJ 2 MG/ML 2 ML VIAL ONE (13:20)
[2023-11-26] MEDS ORDERED: PROPOFOL IV EMULSION 10 MG/ML 20 ML VIAL IV ONE ×5 (13:20→14:56)
[2023-11-26] MEDS ORDERED: fentaNYL citrate PF 100 MCG/2 ML VIAL ONE ×2 (13:20→14:37)
[2023-11-26] MEDS ORDERED: LIDOCAINE 2% 2 ML VIAL/AMP(20MG/ML) INFIL ONE ×3 (13:20→14:24)
[2023-11-26] MEDS ORDERED: MIDAZOLAM HCL 1 MG/ML 2ML VIAL ONE ×2 (13:20→14:37)
[2023-11-26] MEDS ORDERED: DEXAMETHASONE SOD INJ 4 MG/ML VIAL ONE (13:20)
[2023-11-26] MEDS ORDERED: LACTATED RINGER'S 1,000 ML IV SCH (14:15)
--- NOTE | 2023-11-26 14:24 | Anesthesiology Consultation ---
Date of Service November 26, 2023 Assessment & Plan (1) Encounter for pre-operative examination: Chart Review Chart Review: Acceptable Risk for Surgery and Patient NOT seen in Pre Admission Testing Consults Requested none History Surgery Operation Date: 11/26/23 09:50 Proposed Procedures p Cystoscopy Left Retrograde Pyelogram and Stent Placement - Jasiel Wick MD Height/Weight Height: 5 ft 6 in Weight: 125.6 kg Allergies Allergy/AdvReac Type Severity Reaction Status Date / Time Sulfa (Sulfonamide Allergy Intermediate HIVES Verified 11/25/23 17:38 Antibiotics) SWELLING HIGH TEMP morphine AdvReac Severe SEVERE Verified 11/25/23 17:38 MIGRAINE Medications Home Medications Medication Instructions Recorded Confirmed Last Taken oxycodone 5 mg tablet 5 mg PO Q6H PRN pain #10 tabs 11/24/23 11/25/23 Unknown Lactobacil.acidophilus-Bifido.animalis 1 cap PO DAILY 11/25/23 11/25/23 11/25/23 5 billion cell sprinkle capsule (Probiotic) albuterol sulfate 90 mcg/actuation 2 puff inhalation QID PRN 11/25/23 11/25/23 Unknown aerosol inhaler (ProAir HFA) Shortness Of Breath Or Wheezing amitriptyline 10 mg tablet 20 mg PO HS 11/25/23 11/25/23 11/24/23 bupropion HCl 100 mg tablet,12 hr 100 mg PO QAM 11/25/23 11/25/23 11/25/23 sustained-release bupropion HCl 200 mg tablet,12 hr 200 mg PO QAM 11/25/23 11/25/23 11/25/23 sustained-release cetirizine 10 mg tablet (Zyrtec) 10 mg PO DAILY 11/25/23 11/25/23 11/25/23 cinnamon bark 500 mg capsule 500 mg PO HS 11/25/23 11/25/23 11/24/23 (Cinnamon) cranberry concentrate-ascorbic 2 cap PO QAM 11/25/23 11/25/23 11/25/23 acid 140 mg-100 mg capsule (Cranberry Plus Vitamin C) docusate sodium 100 mg capsule 100 mg PO DAILY 11/25/23 11/25/23 11/25/23 (Colace) fluoxetine 40 mg capsule 40 mg PO QAM 01/11/25/23 11/25/23 glucosamine 750 qv-eftfoacultn-ffy 1 tab PO 3XWK 11/25/23 11/25/23 11/24/23 no1 644 mg-C 30 mg-khanh 1 mg tablet (Osteo Bi-Flex Triple Strength) lorazepam 1 mg tablet 0.5 - 1 mg PO HS PRN SLEEP/ANXIETY 11/25/23 11/25/23 Unknown thpjytfrqnuj-zaarsprm-ooxiax 1 tab PO HS 11/25/23 11/25/23 11/24/23 tablet (Multivitamin 50 Plus tablet) omeprazole 40 mg capsule,delayed 40 mg PO DAILYBB 11/25/23 11/25/23 11/25/23 release turmeric 400 mg capsule 400 mg PO HS 11/25/23 11/25/23 11/24/23 Active Medications Generic Name Dose Route Start Last Admin Trade Name Freq PRN Reason Stop Dose Admin Acetaminophen 650 mg 11/25/23 17:47 11/26/23 06:01 Acetaminophen 325 Mg Tab PO 12/25/23 17:46 650 mg Q4H PRN Administration pain/fever Amitriptyline HCl 20 mg 11/25/23 21:36 11/25/23 22:32 Amitriptyline Hcl 10 Mg Tab PO 12/25/23 21:35 20 mg HS KENNEDY Administration Bupropion HCl 300 mg 11/26/23 09:00 11/26/23 08:15 Bupropion Xl 300 Mg Tabcr PO 12/26/23 08:59 300 mg QAM KENNEDY Administration Docusate Sodium 100 mg 11/26/23 09:00 11/26/23 08:15 Docusate Sodium 100 Mg Cap PO 12/26/23 08:59 100 mg DAILY KENNEDY Administration Fluoxetine HCl 40 mg 11/26/23 09:00 11/26/23 08:15 Fluoxetine Hcl 20 Mg Cap PO 12/26/23 08:59 40 mg QAM KENNEDY Administration Sodium Chloride 1,000 mls @ 80 mls/hr 11/25/23 18:00 11/26/23 07:16 Nss IV 12/25/23 17:59 80 mls/hr .[id number] KENNEDY Administration Lactobacillus Acidophilus 2 cap 11/26/23 09:00 11/26/23 08:16 Advanced Probiotic 1250 Mg Capsule PO 12/26/23 08:59 2 cap DAILY KENNEDY Administration Pantoprazole Sodium 40 mg 11/26/23 06:30 11/26/23 06:02 Pantoprazole 40 Mg Tab PO 12/26/23 06:29 40 mg DAILYBB KENNEDY Administration Tamsulosin HCl 0.4 mg 11/25/23 21:00 11/25/23 20:34 Tamsulosin Hcl 0.4 Mg Cap PO 12/25/23 20:59 0.4 mg HS KENNEDY Administration Past Medical History Medical History FAIZAN (obstructive sleep apnea) Gastroparesis Migraine Renal stones Past Surgical History Surgical History S/P appendectomy S/P tubal ligation H/O hand surgery "tumor excision" H/O colonoscopy " 04/02/2016 hyperplastic polyp, diverticulosis " Social History Smoking Status: Never smoker Hx Alcohol Use: Yes Alcohol type: hard liquor alcohol intake frequency: holidays/special occasions only Hx Substance Use: No Physical Exam Vital Signs Last Vital Signs Temp 98.2 F 11/26/23 07:21 Pulse 78 11/26/23 07:21 Resp 18 11/26/23 07:21 BP 108/63 11/26/23 07:21 Pulse Ox 93 11/26/23 07:21 O2 Del Method CPAP 11/26/23 07:21 O2 Flow Rate 2 11/25/23 22:15 Testing Laboratory Results 11/26/23 07:09 11/26/23 07:09 Urine Color Yellow 11/25/23 21:18 Urine Appearance Clear (Clear) 11/25/23 21:18 Urine pH 6.0 (4.5-7.5) 11/25/23 21:18 Ur Specific Friona 1.010 (1.000-1.030) 11/25/23 21:18 Urine Protein Negative (Negative) 11/25/23 21:18 Urine Glucose (UA) Negative (Negative) 11/25/23 21:18 Urine Ketones Negative (Negative) 11/25/23 21:18 Urine Nitrite Negative (Negative) 11/25/23 21:18 Ur Leukocyte Esterase 1+ (Negative) H 11/25/23 21:18 Urine WBC (Auto) 5-10 /hpf (0-5) H 11/25/23 21:18 Urine RBC (Auto) 10-30 /hpf (0-4) H 11/25/23 21:18 U Hyaline Cast (Auto) 0 /lpf (0-5) 11/25/23 21:18 U Epithel Cells (Auto) 10-20 /lpf (0-5) H 11/25/23 21:18 Urine Bacteria (Auto) Negative (Negative) 11/25/23 21:18
[2023-11-26] MEDS ORDERED: fentaNYL citrate PF 100 MCG/2 ML VIAL IV PRN (14:29)
[2023-11-26] MEDS ORDERED: ONDANSETRON INJ 2 MG/ML 2 ML VIAL IV PRN ×2 (14:29→18:51)
[2023-11-26] MEDS ORDERED: ATROPINE SULFATE 0.1 MG/ML 10ML SYR IV PRN (14:29)
[2023-11-26] MEDS ORDERED: ePHEDrine sulfate 50 MG/ML AMP IV PRN (14:29)
--- NOTE | 2023-11-26 15:01 | Operative Report ---
PG Post Operative Report Pre & Post Diagnosis Operation Date: 11/26/23 09:50 Pre-Op Diagnosis: Left ureteral calculus, urinary tract infection, Flank pain Post-Op Diagnosis: Left ureteral calculus, urinary tract infection, Flank pain I identified the patient and participated in the time-out.: Yes Procedure Operation Date: 11/26/23 09:50 Actual Procedures p Cystoscopy Left Retrograde Pyelogram with radiographic interpretation and Stent Placement(Left) - Jasiel Wick MD Surgeon Jasiel Wick MD [employer] None Estimated Blood Loss 0 Findings See Below Mild left hydronephrosis. Stent in appropriate position. Specimens None Drains 6 Stateless by 24 cm left ureteral stent Anesthesia Type MAC Complications none Indications 58-year-old female with 2 proximal obstructing ureteral calculi and a positive urine culture. Description of Procedure After informed consent was obtained, the patient was transported operative suite. MAC anesthesia was induced. The patient was placed in dorsal lithotomy position prepped and draped in a sterile fashion. They received preoperative ceftriaxone for antibiotic prophylaxis. An appropriate surgical timeout was performed. A 22 Stateless rigid scope was inserted per urethra into the bladder. Francisco cystoscopy revealed no stones or lesions. She did have significant cystitis cystica which I think was from the infection. I turned my attention the left ureteral orifice and intubated this with a 5 Stateless open-ended catheter. A left retrograde pyelogram was shot which showed mild left hydronephrosis. A sensor w judie was advanced into the kidney and confirmed fluoroscopically. A 6 Stateless by 24 cm left ureteral stent was deployed with a good proximal coil in the renal pelvis and a good distal coil noted in the bladder. These were confirmed fluoroscopically and under direct visualization, respectively. The bladder was emptied and the scope was removed. This concluded the end of the case. All counts were correct at the end of the case. I was present, scrubbed, and actively participated for the entirety of the procedure. I attest to the content of the Intraoperative Record and any orders documented therein. Any exceptions are noted below.
[2023-11-26] MEDS ORDERED: DIATRIZOATE MEGLUMINE 30% 100ML VIAL INSTIL ONE (15:13)
--- NOTE | 2023-11-26 15:29 | Anesthesiology Progress Note ---
Date of Service November 26, 2023 Anesthesia Post Procedure Vital Signs Vital Signs: Temp Pulse Pulse Pulse Resp BP BP 11/26/23 15:15 78 20 124/77 11/26/23 15:07 97.7 F 79 16 124/74 11/26/23 14:23 98.1 F 76 20 11/26/23 07:21 98.2 F 78 18 108/63 11/25/23 22:15 11/25/23 21:58 98.1 F 93 H 16 11/25/23 21:30 11/25/23 21:04 131/77 11/25/23 19:33 11/25/23 19:33 11/25/23 19:20 80 11/25/23 19:06 79 11/25/23 19:05 82 14 BP Pulse Ox O2 Del Method O2 Flow Rate 11/26/23 15:15 93 Nasal Cannula 3 11/26/23 15:07 95 Oxymask 6 11/26/23 14:23 115/76 93 Room Air 11/26/23 07:21 93 CPAP 11/25/23 22:15 95 Nasal Cannula 2 11/25/23 21:58 130/76 91 Room Air 11/25/23 21:30 Nasal Cannula, CPAP 2 11/25/23 21:04 Nasal Cannula 2 11/25/23 19:33 95 Nasal Cannula 2 11/25/23 19:33 88 L Room Air 11/25/23 19:20 11/25/23 19:06 94 Room Air 11/25/23 19:05 114/71 92 Room Air Pain Intensity Left Flank: Pain Intensity: 9 Transfer of Care Handoff Completed per policy Notes Mental Status: alert / awake / arousable and participated in evaluation Patient Amnestic to Procedure: Yes Nausea / Vomiting: adequately controlled Pain: adequately controlled Airway Patency, RR, SpO2: stable & adequate BP & HR: stable & adequate Hydration State: stable & adequate Anesthetic Complications: no major complications apparent and Pt Satisfied with anesthetic care
--- NOTE | 2023-11-26 15:35 | Fluoroscopy Report ---
FL retrograde includes kub CLINICAL HISTORY: STENT PLACMENTstatus post placement of a left ureteral stent COMPARISON STUDY: CT 11/22/2023 FLUOROSCOPY TIME: 5.4 seconds FLUOROSCOPY IMAGES: 2 EXPOSURE DOSE: 2.43 mGy FINDINGS: There is persistent left-sided hydronephrosis. Images demonstrate placement of a left urete ral stent, proximal portion in satisfactory positioning. The distal portion was not imaged. IMPRESSION: Fluoroscopic assistance as above. ACT 112: Negative or not required by law. Electronically signed by: Ben Pierson M.D. 11/26/2023 3:34 PM
[2023-11-26] MEDS ORDERED: cefTRIAXone SODIUM 2,000 MG in DEXTROSE 5 % MINI-B 50 ML IV SCH (18:00)
[2023-11-26] MEDS ORDERED: PROMETHAZINE HCL 12.5 MG in SODIUM CHLORIDE 0.9% 50 ML IV STA (20:13)
[2023-11-26] MEDS ORDERED: PROMETHAZINE HCL 12.5 MG in SODIUM CHLORIDE 0.9% 50 ML IV PRN (20:13)
[2023-11-26] MEDS: TAMSULOSIN HCL 0.4 MG CAP PO SCH (21:20)
[2023-11-26] MEDS: AMITRIPTYLINE HCL 10 MG TAB PO SCH (21:20)
[2023-11-27] MEDS: PANTOprazole 40 MG TAB PO SCH (05:30)
[2023-11-27 06:59] LABS: Hematocrit (blood only) 35.4 % (37.0-47.0); Hemoglobin 11.3 g/dl (12.0-16.0); Mean Corpuscular Hemoglobin 27.8 pg (25.0-34.0); Mean Corpuscular Hgb Conc 31.9 g/dL (32.0-36.0); Mean Corpuscular Volume 87.2 fL (80.0-100.0); Platelet Count 196 K/uL (130-400); RDW Coefficient of Variation 15.2 % (11.5-14.5); RDW Standard Deviation 48.2 fL (36.4-46.3); Red Blood Count 4.06 M/uL (4.20-5.40); White Blood Count 6.78 K/ul (4.8-10.8)
[2023-11-27 07:24] LABS: BUN Creatinine Ratio 11.8 (10-20); Calcium 8.9 mg/dl (8.6-10.3); Creatinine Clr Calc Pharmacy 97.7 ml/min; Est GFR (African American) 87.5 ml/min; Est GFR (Non-African American) 75.5 ml/min; Magnesium 2.1 mg/dl (1.7-2.4); Potassium 3.8 mmol/L (3.5-5.1)
--- NOTE | 2023-11-27 07:45 | Urology Progress Note ---
Date of Service November 27, 2023 Assessment & Plan (1) Left ureteral calculus: (2) UTI (urinary tract infection): (3) Flank pain: Plan 58yo F admitted with intractable left flank pain, NADEEN, and concern for infection. CT abdomen pelvis from 11/24/23 showed that she had 2 stones in the proximal left ureter measuring 2 and 4 mm respectively with mild left hydronephrosis. KUB 11/25/23 shows no significant distal migration of the left ureteral calculi measuring up to 4 mm compared to prior CT exam. POD #1 s/p cystoscopy and left ureteral stent placement Tolerating the ureteral stent with minimal bother. Afebrile and hemodynamically stable Labs No leukocytosis, creatinine improved to 0.85. Urine culture from 11/24/2023 final with E.coli. On ceftriaxone. Okay to d/c from perspective when medically stable Recommend d/c with course of PO antibiotics, Tamsulosin, prn Pyridium and prn pain medication for stent management Will arrange outpatient follow-up with our service to discuss definitive stone treatment after the infection has been treated. Expected clinical course reviewed, all questions were answered. Urology will sign off. Please call with any further questions or concerns. Admission and Anticipated Discharge Date Admission Date: November 25, 2023 Subjective Pt examined at bedside this AM Awake, resting in bed on arrival. No acute distress. Denies f/c/n/v. Tolerating the stent with minimal bother. Voiding without issue. Some hematuria and dysuria. Tolerating diet. Review of Systems Constitutional: as per Subjective / HPI Genitourinary: as per Subjective / HPI Physical Exam Constitutional: no acute distress Respiratory: no respiratory distress and no labored breathing Neurologic: moves all extremities and awake Psychiatric: A+Ox3, euthymic affect Results & Data Vital Signs (Past 12 Hours) Vital Signs Temp Pulse Resp BP Pulse Ox O2 Del Method O2 Flow Rate 11/27/23 02:50 36.8 C 74 18 117/78 92 Room Air 11/26/23 23:52 94 CPAP 3 11/26/23 23:31 36.5 C 78 18 114/73 88 L CPAP 2 11/26/23 21:23 78 106/64 11/26/23 20:04 37 C 71 18 164/64 H 93 Room Air 11/26/23 19:49 Nasal Cannula, CPAP 2 PG Care Time/CCT Total # of Minutes Spent Total Time Spent with Patient: Total time spent is greater than 50% in coordination of care (as documented) at patient's floor/unit and/or counseling patient: Coding Level of Care Code 25071 SUB INP/OBS CARE 2/35MIN Diagnoses Left ureteral calculus N20.1 UTI (urinary tract infection) N39.0 Flank pain R10.9
[2023-11-27 07:50] VITALS: RESP 16
[2023-11-27] MEDS: FLUoxetine HCL 20 MG CAP PO SCH (08:58)
[2023-11-27] MEDS: buPROPion XL 300 MG TABCR PO SCH (08:58)
[2023-11-27] MEDS: DOCUSATE SODIUM 100 MG CAP PO SCH (08:58)
[2023-11-27] MEDS: ADVANCED PROBIOTIC 1250 MG CAPSULE PO SCH (08:58)
[2023-11-27] MEDS: SODIUM CHLORIDE 0.9% 1,000 ML IV SCH (10:29)
[2023-11-27 15:05] VITALS: BP 130/76; TEMP 98.2; O2SAT 93
--- NOTE | 2023-11-27 15:28 | Discharge Summary ---
Discharge Summary Date of Service November 27, 2023 Admission HPI Per Admitting Provider Patient is a 58-year-old female, morbidly obese, with history of GERD, stage III CKD, history of renal stones, history of migraine with aura, asthma, seasonal allergic rhinitis, FAIZAN, prediabetes, depression who presents with flank pain, and diagnosed with renal stone, NADEEN. Patient presented in the ED yesterday, with flank pain and CT abdomen was obtained, showing renal stone in left ureter, creatinine at that time was 1.2. UA was obtained. At that time she was discharged home with medications, and recommendations to follow-up with urology. Today she presents back to the emergency room as her pain was not controlled. She also had some nausea/ vomiting. Urine culture is positive for bacteria and she was started on Rocephin. Creatinine is now worsened at 1.6. CT also showed some mild L hydronephrosis yesterday. She denies any fever, chills, chest pain or shortness of breath. She has hx of renal stones and urological procedures in the past. ED provider contacted urology. Principal Dx & Hospital Course #1 = Principal Diagnosis Updated Medication List Medication Instructions Recorded Confirmed Type oxycodone 5 mg tablet 5 mg PO Q6H PRN pain #10 tabs 11/24/23 11/25/23 Rx Lactobacil.acidophilus-Bifido.animalis 1 cap PO DAILY 11/25/23 11/25/23 History 5 billion cell sprinkle capsule (Probiotic) albuterol sulfate 90 mcg/actuation 2 puff inhalation QID PRN 11/25/23 11/25/23 History aerosol inhaler (ProAir HFA) Shortness Of Breath Or Wheezing amitriptyline 10 mg tablet 20 mg PO HS 11/25/23 11/25/23 History bupropion HCl 100 mg tablet,12 hr 100 mg PO QAM 11/25/23 11/25/23 History sustained-release bupropion HCl 200 mg tablet,12 hr 200 mg PO QAM 11/25/23 11/25/23 History sustained-release cetirizine 10 mg tablet (Zyrtec) 10 mg PO DAILY 11/25/23 11/25/23 History cinnamon bark 500 mg capsule 500 mg PO HS 11/25/23 11/25/23 History (Cinnamon) cranberry concentrate-ascorbic 2 cap PO QAM 11/25/23 11/25/23 History acid 140 mg-100 mg capsule (Cranberry Plus Vitamin C) docusate sodium 100 mg capsule 100 mg PO DAILY 11/25/23 11/25/23 History (Colace) fluoxetine 40 mg capsule 40 mg PO QAM 11/25/23 11/25/23 History glucosamine 750 ez-xgpriajauno-sds 1 tab PO 3XWK 11/25/23 11/25/23 History no1 644 mg-C 30 mg-khanh 1 mg tablet (Osteo Bi-Flex Triple Strength) lorazepam 1 mg tablet 0.5 - 1 mg PO HS PRN SLEEP/ANXIETY 11/25/23 11/25/23 History kkjdfcdggiwa-qhjpjcyt-uwislu 1 tab PO HS 11/25/23 11/25/23 History tablet (Multivitamin 50 Plus tablet) omeprazole 40 mg capsule,delayed 40 mg PO DAILYBB 11/25/23 11/25/23 History release turmeric 400 mg capsule 400 mg PO HS 11/25/23 11/25/23 History Hospital Stay Data Consultations 11/25/23 17:28 ED Decision to Admit Stat 11/25/23 18:18 Consult Urology Routine Procedures Performed Operation Date: 11/26/23 09:50 Actual Procedures p Cystoscopy Left Retrograde Pyelogram and Stent Placement(Left) - Jasiel Wick MD Diagnostic Imagining Performed 11/26/23 [place] retrograde includes kub Routine
[2023-11-27 16:11] VITALS: PULSE 76
== END 2023-11-27 18:12 | disposition home or self-care (01) | DRG 660 ==
LOC: ED 14:49 → SUATTDRO 17:47 → 3N 17:47

== ENCOUNTER 2025-01-12 19:55 | Inpatient (IN) ==
--- NOTE | 2025-01-12 20:11 | Emergency Department Note ---
History of Present Illness General Chief complaint: Shortness of Breath/Dyspnea Stated complaint: DIFFICULTY BREATHING, TIGHT COUGH Time Seen by Provider: 01/12/25 20:08 History of Present Illness Maximum Pain Intensity: 4 This is a 59-year-old female that presents to the emergency department via private vehicle with a history of "trouble breathing". The patient does provide the history but in a soft-spoken voice and is conversationally dyspneic. The patient notes that she had influenza about 2 weeks ago noting multiple family members with similar symptoms. She was also diagnosed with laryngitis. Over the past 1 to 2 days she notes significant increase in shortness of breath to a point now where she has trouble breathing and even talking. She denies any chest pain. There is associated cough. No hemoptysis. She denies any nausea, vomiting or diarrhea. Home Medications Medication Instructions Recorded Confirmed Type Lactobacil.acidophilus-Bifido.animalis 1 cap PO QAM 11/25/23 01/12/25 History 5 billion cell sprinkle capsule (Probiotic) amitriptyline 10 mg tablet 20 mg PO HS 11/25/23 01/12/25 History bupropion HCl 100 mg tablet,12 hr 300 mg PO QAM 11/25/23 01/12/25 History sustained-release cetirizine 10 mg tablet (Zyrtec) 10 mg PO QAM 11/25/23 01/12/25 History cinnamon bark 500 mg capsule 500 mg PO HS 11/25/23 01/12/25 History (Cinnamon) cranberry concentrate-ascorbic 2 cap PO QAM 11/25/23 01/12/25 History acid 140 mg-100 mg capsule (Cranberry Plus Vitamin C) docusate sodium 100 mg capsule 100 mg PO QAM 11/25/23 01/12/25 History (Colace) fluoxetine 40 mg capsule 40 mg PO QAM 11/25/23 01/12/25 History glucosamine 750 mu-xncrjiaflep-xhw 1 tab PO 3XWK 11/25/23 01/12/25 History no1 644 mg-C 30 mg-khanh 1 mg tablet (Osteo Bi-Flex Triple Strength) lorazepam 1 mg tablet 0.5 - 1 mg PO HS PRN SLEEP/ANXIETY 11/25/23 01/12/25 History cfergadblaai-eipismic-exrudi 1 tab PO HS 11/25/23 01/12/25 History tablet (Multivitamin 50 Plus tablet) omeprazole 40 mg capsule,delayed 40 mg PO QAM 11/25/23 01/12/25 History release turmeric 400 mg capsule 400 mg PO HS 11/25/23 01/12/25 History phenazopyridine 200 mg tablet 200 mg PO Q8H PRN bladder 12/30/23 01/12/25 History (Pyridium) irritation acetaminophen 500 mg tablet 1,000 mg PO DIRECTED PRN 01/12/25 01/12/25 History (Tylenol Extra Strength) PAIN/FEVER albuterol sulfate 90 mcg/actuation 2 puff inhalation QID PRN 01/12/25 01/12/25 History aerosol inhaler Shortness Of Breath Or Wheezing bupropion HCl 200 mg tablet,12 hr 200 mg PO QAM 01/12/25 01/12/25 History sustained-release Allergies Allergy/AdvReac Type Severity Reaction Status Date / Time Sulfa (Sulfonamide Allergy Intermediate Hives, Verified 01/12/25 20:44 Antibiotics) swelling, high temp morphine AdvReac Severe Severe Verified 01/12/25 20:44 migraines Past Med/Surg History Problem List (Updated 01/12/25 @ 23:25 by Jett Dumont PA-C) Tachypnea (Acute) Dyspnea (Acute) Encounter for pre-operative examination Flank pain UTI (urinary tract infection) Left ureteral calculus (Acute) Kidney stone (Chronic) Renal calculus, left Migraine (Chronic) Gastroparesis S/P appendectomy (Chronic) S/P tubal ligation (Chronic) H/O hand surgery (Chronic) right, large wart removed H/O colonoscopy (Chronic) Renal stones FAIZAN (obstructive sleep apnea) CPAP Medical History Pulmonary hypertension Echo 12/2023: PASP 40 mmHg. Mild pulmonary hypertension present. Morbid obesity Prediabetes History of COVID-19 ~07/2023 (home test)- symptoms resolved Depression Anxiety Insomnia GERD (gastroesophageal reflux disease) Surgical History History of repair of right rotator cuff Hx of bilateral cataract extraction Hx of cystoscopy left side, stent placed Hx of colonoscopy with polypectomy Social History Smoking Status: Never smoker Second Hand Exposure: No; Do You Dip or Chew Tobacco: No; Hx Alcohol Use: Yes Alcohol type: hard liquor Hx Substance Use: No Preferred Language: Azerbaijani Communication Ability: Effective Collator Required: No Beliefs That Will Affect Care: None Current Living Situation: Spouse Feels Safe at Home: Yes Assistive Devices: Glasses Review of Systems A total of 10 systems reviewed and were otherwise negative Physical Exam Vital Signs Vital Signs - 24 hr 01/12/25 20:04 01/12/25 20:26 01/12/25 20:26 Temperature 36.4 C L Temperature Source Oral Pulse Rate 90 Pulse Rate [Finger] 80 Respiratory Rate 26 H 30 H Respiratory Effort / Characteristics Spontaneous Short of Breath SOB on Exertion Labored Respiratory Depth Normal Respiratory Pattern Regular Blood Pressure 129/84 Blood Pressure [Right Arm] 123/76 Blood Pressure Mean 99 Blood Pressure Mean [Right Arm] 91 Blood Pressure Position Sitting Pulse Oximetry 96 95 Oxygen Delivery Method Room Air Room Air Room Air Oxygen Flow Rate Sepsis Recent Fever Within 48 Hours No Sepsis New/Unexplained Change in Mental Status N/A Sepsis Action Taken by Nursing No Action Required 01/12/25 20:26 01/12/25 20:33 01/12/25 20:36 Temperature Temperature Source Pulse Rate Pulse Rate [Finger] 85 Respiratory Rate 34 H Respiratory Effort / Characteristics Labored Short of Breath Spontaneous Labored Respiratory Depth Respiratory Pattern Blood Pressure Blood Pressure [Right Arm] Blood Pressure Mean Blood Pressure Mean [Right Arm] Blood Pressure Position Pulse Oximetry 96 Oxygen Delivery Method Room Air Room Air Oxygen Flow Rate Sepsis Recent Fever Within 48 Hours Sepsis New/Unexplained Change in Mental Status Sepsis Action Taken by Nursing 01/12/25 20:49 01/12/25 21:39 01/12/25 22:51 Temperature Temperature Source Pulse Rate 79 Pulse Rate [Finger] 85 Respiratory Rate 24 Respiratory Effort / Characteristics Respiratory Depth Respiratory Pattern Blood Pressure Blood Pressure [Right Arm] 115/63 Blood Pressure Mean Blood Pressure Mean [Right Arm] 80 Blood Pressure Position Pulse Oximetry 92 87 L Oxygen Delivery Method Room Air Room Air Oxygen Flow Rate Sepsis Recent Fever Within 48 Hours Sepsis New/Unexplained Change in Mental Status Sepsis Action Taken by Nursing 01/12/25 22:51 Temperature Temperature Source Pulse Rate Pulse Rate [Finger] Respiratory Rate Respiratory Effort / Characteristics Respiratory Depth Respiratory Pattern Blood Pressure Blood Pressure [Right Arm] Blood Pressure Mean Blood Pressure Mean [Right Arm] Blood Pressure Position Pulse Oximetry 92 Oxygen Delivery Method Nasal Cannula Oxygen Flow Rate 2 Sepsis Recent Fever Within 48 Hours Sepsis New/Unexplained Change in Mental Status Sepsis Action Taken by Nursing VITAL SIGNS - Vital signs and nursing notes were reviewed. Tachypneic, otherwise stable and afebrile. GENERAL - 59-year-old female appearing her stated age who is experiencing mild respiratory distress. Otherwise communicates well with provider and answers questions appropriately. SKIN - Without rashes. HEAD - NC/AT. EYES - PERRL with EOMI bilaterally. Sclera anicteric. EARS - No deformities of external structures noted on gross examination bilaterally. NOSE - Midline and without cyanosis. No epistaxis or purulent drainage noted. MOUTH/OROPHARYNX - Without perioral cyanosis. NECK - Neck with FROM. Supple to palpation. No nuchal rigidity. LUNGS - there is upper airway wheezing without definite stridor. No drooling, trismus or tripoding but the patient is sitting upright. CARDIAC - RRR with S1/S2. No murmur, rubs, or gallops appreciated. EXTREMITIES - No clubbing or peripheral cyanosis. +5/5 strength noted in UE/LE bilaterally. NEUROLOGIC - Cranial nerves II through XII grossly intact. PSYCH -alert, oriented and pleasant on exam. Course Administered Medications Sodium Chloride (Nss) 500 mls @ 125 mls/hr IV .Q4H ONE Stop: 01/13/25 02:11 Last Admin: 01/12/25 22:18 Dose: 125 mls/hr Documented By: CK Discontinued Medications Albuterol (Albut/Ipratrop 3mg/0.5mg Neb 3 Ml Vial) 12 ml NEB ONE ONE; Protocol Stop: 01/12/25 20:25 Last Admin: 01/12/25 20:36 Dose: 12 ml Documented By: SHANNAN Dexamethasone Sodium Phosphate (DexamethasonePf 10 Mg/Ml Vial) 10 mg IV NOW ONE Stop: 01/12/25 20:25 Last Admin: 01/12/25 20:42 Dose: 10 mg Documented By: CK Ioversol (Optiray 320 125ml) 115 ml IV ONCE ONE Stop: 01/12/25 21:58 Last Admin: 01/12/25 21:57 Dose: 115 ml Documented By: GISELL Medical Decision Making Laboratory Data 01/12/25 20:20 01/12/25 20:20 Lab Results 01/12/25 01/12/25 01/12/25 Range/Units 20:20 21:22 23:49 WBC 8.88 (4.8-10.8) K/ul RBC 5.47 H (4.20-5.40) M/uL Hgb 14.6 (12.0-16.0) g/dl Hct 45.5 (37.0-47.0) % MCV 83.2 (80.0-100.0) fL MCH 26.7 (25.0-34.0) pg MCHC 32.1 (32.0-36.0) g/dL RDW Std Deviation 44.6 (36.4-46.3) fL RDW Coeff of Harsh 14.8 H (11.5-14.5) % Plt Count 370 (130-400) K/uL MPV 8.5 L (9.4-12.4) fL Immature Gran % (Auto) 0.2 % Neut % (Auto) 54.6 % Lymph % (Auto) 35.2 % Spencer % (Auto) 8.6 % Eos % (Auto) 0.9 % Baso % (Auto) 0.5 % Neut # (Auto) 4.85 (1.40-6.50) K/uL Lymph # (Auto) 3.13 (1.20-3.40) K/uL Spencer # (Auto) 0.76 H (0.11-0.59) K/uL Eos # (Auto) 0.08 (0.00-0.50) K/uL Baso # (Auto) 0.04 (0.00-0.20) K/uL Immature Gran # (Auto) 0.02 (0.01-0.20) K/uL PT 11.7 (9.0-12.0) Seconds INR 1.1 (0.9-1.1) APTT 25 (21-31) Seconds PTT Ratio 0.9 VBG pH 7.42 H (7.36-7.41) VBG pCO2 43 (38-50) mmHg VBG pO2 43 mmHg VBG HCO3 28 mmol/L VBG O2 Saturation 73.3 % VBG Base Excess 2.9 mEq/L Sodium 141 (136-145) mmol/L Potassium 3.7 (3.5-5.1) mmol/L Chloride 103 (98-107) mmol/L Carbon Dioxide 28 (21-32) mmol/L Anion Gap 10 (3-11) BUN 11 (6-23) mg/dl Creatinine 0.96 (0.6-1.2) mg/dl Est Cr Clr Drug Dosing 85.3 ml/min eGFR 68.16 BUN/Creatinine Ratio 11.5 (10-20) Glucose 98 (70-99(Fasting)) mg/dl Lactate 3.2 H* 1.4 (0.4-2.0) mmol/L Calcium 10.1 (8.6-10.3) mg/dl Magnesium 2.1 (1.7-2.4) mg/dl Total Bilirubin 0.9 (0.2-1.0) mg/dl AST 34 (13-39) U/L ALT 35 (7-52) U/L Alkaline Phosphatase 67 (34-104) U/L Troponin I High Sens < 2.3 (0-14) pg/ml B-Natriuretic Peptide 28 (0-100) pg/ml Total Protein 7.9 (6.0-8.3) gm/dl Albumin 4.5 (3.4-5.0) gm/dl Globulin 3.4 (2.5-4.0) gm/dl Albumin/Globulin Ratio 1.3 (0.9-2) Procalcitonin < 0.02 (0-0.5) ng/ml TSH 1.485 (0.300-4.500) uIu/ml Adenovirus (PCR) Not Detected (NotDetected) B. pertussis DNA (PCR) Not Detected (NotDetected) B.parapertussis DNA PCR Not Detected (NotDetected) C. pneumoniae DNA (PCR) Not Detected (NotDetected) Coronavirus OC43 (PCR) Not Detected (NotDetected) Coronavirus HKU1 (PCR) Not Detected (NotDetected) Coronavirus 229E (PCR) Not Detected (NotDetected) SARS-CoV-2 (PCR) Not Detected (NotDetected) Coronavirus NL63 (PCR) Not Detected (NotDetected) Human Metapneumovir PCR Not Detected (NotDetected) Influenza Type A (PCR) Not Detected (NotDetected) Influenza Type B (PCR) Not Detected (NotDetected) M. pneumoniae (PCR) Not Detected (NotDetected) Parainfluenza 1 (PCR) Not Detected (NotDetected) Parainfluenza 2 (PCR) Not Detected (NotDetected) Parainfluenza 3 (PCR) Not Detected (NotDetected) Parainfluenza 4 (PCR) Not Detected (NotDetected) RSV (PCR) Not Detected (NotDetected) Entero/Rhino (PCR) Not Detected (NotDetected) Imaging Data Radiologist's Impression: Chest CTA 01/12/25 20:24 Exam(s): CTA CHEST IV Amt: 115 ml optiray 320 EXAM: CT Angiography Chest With Intravenous Contrast CLINICAL HISTORY: Reason for exam: dyspnea, tachypnea. TECHNIQUE: Axial computed tomographic angiography images of the chest with intravenous contrast. CTDI is 24.63 mGy and DLP is 604.46 mGy-cm. Automated exposure control was utilized for the study. A dose lowering technique was utilized adhering to the principles of ALARA. MIP reconstructed images were created and reviewed. COMPARISON: Chest x-ray from January 12, 2025, CT abdomen and pelvis from November 24, 2023. FINDINGS: Pulmonary arteries: The pulmonary arterial tree is well opacified with contrast. No pulmonary embolism is identified. Aorta: No acute findings. No thoracic aortic aneurysm. Lungs: Small amount of scattered subsegmental atelectasis in both lower lobes. The lungs are otherwise clear. No pneumothorax or pleural effusion. No mass. Pleural space: See above. Heart: Unremarkable. No cardiomegaly. No significant pericardial effusion. No evidence of RV dysfunction. Bones/joints: No acute fracture. No dislocation. Soft tissues: Unremarkable. Lymph nodes: Unremarkable. No enlarged lymph nodes. Liver: Fatty infiltration of the liver. Gallbladder and bile ducts: Previous cholecystectomy. Adrenals: 2 cm left adrenal nodule, unchanged. IMPRESSION: 1. Small amount of scattered subsegmental atelectasis in both lower lobes. The lungs are otherwise clear. No pneumothorax or pleural effusion. 2. The pulmonary arterial tree is well opacified with contrast. No pulmonary embolism is identified. Electronically signed by: Marlon Sosa MD 01/12/25 22:[address] PM [address] Tissue [address]ck [address] 01/12/25 20:24 Exam(s): CT NECK With Contrast IV Amt: 115 ml optiray 320 EXAM: CT Neck With Intravenous Contrast CLINICAL HISTORY: Reason for exam: dyspnea, tachypnea. TECHNIQUE: Axial computed tomography images of the neck with intravenous contrast. CTDI is 37.82 mGy and DLP is 1230.67 mGy-cm. Automated exposure control was utilized for the study. A dose lowering technique was utilized adhering to the principles of ALARA. CONTRAST: Patient received 115 ml optiray 320 of IV contrast COMPARISON: No relevant prior studies available. FINDINGS: Oropharynx: Unremarkable. No significant tonsillar enlargement. No peritonsillar abscess. Hypopharynx: Unremarkable. Larynx: Unremarkable. Normal epiglottis. Trachea: Unremarkable. Retropharyngeal space: Unremarkable. Submandibular/parotid glands: Unremarkable. Glands are normal in size. Thyroid: Smooth oval 8 mm nodule the left thyroid lobe. Bones/joints: No acute fracture. Soft tissues: Unremarkable. Vasculature: No acute findings. Lymph nodes: Unremarkable. No lymphadenopathy. Lung apices: Unremarkable as visualized. IMPRESSION: No acute findings in the neck. Electronically signed by: Marlon Sosa MD 01/12/25 22:48 PM Chest X-Ray 01/12/25 20:25 Exam(s): XR CXR 1 VIEW EXAM: XR Chest, 1 View CLINICAL HISTORY: Reason for exam: dyspnea. TECHNIQUE: Frontal view of the chest. COMPARISON: November 25, 2023 FINDINGS: Lungs: Unremarkable. No consolidation. Pleural space: Unremarkable. No pneumothorax. Heart: Unremarkable. No cardiomegaly. Mediastinum: Unremarkable. Normal mediastinal contour. Bones/joints: Unremarkable. No acute fracture. IMPRESSION: No acute cardiopulmonary process is identified. Electronically signed by: Marlon Sosa MD 01/12/25 22:13 PM [facility] Narrative Patient was seen and evaluated as above in room B03b. Review was performed of triage nursing notes and vital signs. I did review pertinent previous visits and patient history. After obtaining a thorough history and physical examination the above work up was performed. Patient presents to us today for evaluation of dyspnea. On my assessment there is increased work of breathing with a respiratory rate ranging from the mid 20s up to about 40. There is no stridor. There does appear to be upper airway wheezing. Options of care were discussed with the patient. IV access with established. Labs are drawn. I did order IV dexamethasone and an hour-long nebulizer treatment. She was reevaluated with some improvement. Chest x-ray was performed and per my interpretation was negative for acute process. Patient then sent to CT once felt stable and this evaluated the neck as well as the chest. Per my interpretation these were negative for emergent findings. Radiology report is as above also noting essentially no acute findings other than some small amount of atelectasis which at this time is not felt to be contributory. IV fluids ordered to hydrate as the patient notes she has had not much to drink today. Labs reveal no leukocytosis or concerning anemia. Coags normal. VBG pH 7.42. No emergent metabolic disturbance but will note lactate 3.2 which I do believe is secondary to dehydration today. Low suspicion for infectious ideology. Blood culture pending. Procalcitonin normal and undetectable. Troponin and BNP are normal. BioFire panel negative. An EKG was performed and per my interpretation reveals normal sinus rhythm at a rate of 85 bpm. QTc 416. URS 80. No ST elevation on this rhythm tracing. Patient oxygenation now in the upper 80s/low 90s. Will start supplemental O2. The patient at this time I do believe would benefit from admission for further evaluation and management. Case discussed with the hospitalist service. Please refer the documentation regarding her stay. Case discussed with ED attending physician. GCS: 15 In the evaluation and treatment of this patient the following differential diagnoses were entertained: Foreign body of the airway, tracheitis, epiglottitis, Ernie's angina, RPA, LOCOMOTIVE INSPECTOR, pneumonia, PE, pneumothorax, among others Impression & Plan Dyspnea, Tachypnea Discharge Plan Visit Data Chief Complaint: Shortness of Breath/Dyspnea Stated Complaint: DIFFICULTY BREATHING, TIGHT COUGH ED Provider: Suresh Freeman ED Midlevel Provider: Jett Dumont Discharge Problem: Dyspnea, Tachypnea Patient Disposition: Admitted As Inpatient Condition: Fair Forms Stand Alone Forms: [facility] [employer] Prescriptions Prescriptions: No Action fluoxetine 40 mg capsule 40 mg PO QAM cetirizine [Zyrtec] 10 mg Tablet 10 mg PO QAM Cranberry Plus Vitamin C 140-100 mg Capsule 2 cap PO QAM omeprazole 40 mg capsule,delayed release(DR/EC) 40 mg PO QAM bupropion HCl 100 mg tablet sustained-release 12 hr 300 mg PO QAM Rx Instructions: TOTAL DOSE 300 MG--TAKES WITH 200 MG TAB. amitriptyline 10 mg tablet 20 mg PO HS docusate sodium [Colace] 100 mg Capsule 100 mg PO QAM lorazepam 1 mg Tablet 0.5 - 1 mg PO HS PRN (Reason: SLEEP/ANXIETY) Multivitamin 50 Plus Tablet 1 tab PO HS cinnamon bark [Cinnamon] 500 mg Capsule 500 mg PO HS Probiotic 5 billion cell Capsule, Sprinkle 1 cap PO QAM Osteo Bi-Flex Triple Strength 750 mg-644 mg- 30 mg-1 mg Tablet 1 tab PO 3XWK Rx Instructions: MON, WED, & FRI turmeric 400 mg Capsule 400 mg PO HS phenazopyridine [Pyridium] 200 mg tablet 200 mg PO Q8H PRN (Reason: bladder irritation) acetaminophen [Tylenol Extra Strength] 500 mg Tablet 1,000 mg PO DIRECTED PRN (Reason: PAIN/FEVER) albuterol sulfate 90 mcg/actuation Hfa Aerosol Inhaler 2 puff INHALATION QID PRN (Reason: Shortness Of Breath Or Wheezing) bupropion HCl 200 mg tablet sustained-release 12 hr 200 mg PO QAM Rx Instructions: TOTAL DOSE 300 MG--TAKES WITH 100 MG TAB. Referrals Referrals: Abena Harden MD [Primary Care Provider] -
[2025-01-12] MEDS: ALBUT/IPRATROP 3MG/0.5MG NEB 3 ML VIAL NEB ONE (20:36)
[2025-01-12] MEDS: dexAMETHasone**PF** 10 MG/ML VIAL IV ONE (20:42)
[2025-01-12 20:48] LABS: Basophils # (auto) 0.04 K/uL (0.00-0.20); Basophils % (auto) 0.5 %; Eosinophils # (auto) 0.08 K/uL (0.00-0.50); Eosinophils % (auto) 0.9 %; Hematocrit (blood only) 45.5 % (37.0-47.0); Hemoglobin 14.6 g/dl (12.0-16.0); Immature Granulocytes # (auto) 0.02 K/uL (0.01-0.20); Immature Granulocytes % (auto) 0.2 %; Lymphocytes # (auto) 3.13 K/uL (1.20-3.40); Lymphocytes % (auto) 35.2 %; Mean Corpuscular Hemoglobin 26.7 pg (25.0-34.0); Mean Corpuscular Hgb Conc 32.1 g/dL (32.0-36.0); Mean Corpuscular Volume 83.2 fL (80.0-100.0); Mean Platelet Volume 8.5 fL (9.4-12.4); Monocytes # (auto) 0.76 K/uL (0.11-0.59); Monocytes % (auto) 8.6 %; Neutrophils # (auto) 4.85 K/uL (1.40-6.50); Neutrophils % (auto) 54.6 %; Platelet Count 370 K/uL (130-400); RDW Coefficient of Variation 14.8 % (11.5-14.5); RDW Standard Deviation 44.6 fL (36.4-46.3); Red Blood Count 5.47 M/uL (4.20-5.40); White Blood Count 8.88 K/ul (4.8-10.8)
[2025-01-12 21:01] LABS: Alanine Aminotransferase 35 U/L (7-52); Albumin Globulin Ratio 1.3 (0.9-2); Albumin Level 4.5 gm/dl (3.4-5.0); Alkaline Phosphatase 67 U/L (34-104); Anion Gap 10 (3-11); Aspartate Aminotransferase 34 U/L (13-39); BUN Creatinine Ratio 11.5 (10-20); Bilirubin,Total 0.9 mg/dl (0.2-1.0); Blood Urea Nitrogen 11 mg/dl (6-23); Calcium 10.1 mg/dl (8.6-10.3); Carbon Dioxide 28 mmol/L (21-32); Chloride 103 mmol/L (98-107); Creatinine Clr Calc Pharmacy 85.3 ml/min; Globulin 3.4 gm/dl (2.5-4.0); Glucose 98 mg/dl (70-99(Fasting)); Magnesium 2.1 mg/dl (1.7-2.4); Potassium 3.7 mmol/L (3.5-5.1); Sodium 141 mmol/L (136-145); Total Protein 7.9 gm/dl (6.0-8.3)
[2025-01-12 21:07] LABS: Troponin I High Sensitivity < 2.3 pg/ml (0-14)
[2025-01-12 21:16] LABS: Thyroid Stimulating Hormone 1.485 uIu/ml (0.300-4.500)
[2025-01-12 21:19] LABS: INR 1.1 (0.9-1.1); Partial Thromboplastin Ratio 0.9; Partial Thromboplastin Time 25 Seconds (21-31); Prothrombin Time 11.7 Seconds (9.0-12.0)
[2025-01-12 21:22] LABS: Base Excess VBG 2.9 mEq/L; HCO3 VBG 28 mmol/L; Oxygen Saturation VBG 73.3 %; PCO2 VBG 43 mmHg (38-50); PO2 VBG 43 mmHg; pH VBG 7.42 (7.36-7.41)
[2025-01-12 21:41] LABS: Adenovirus PCR Not Detected (NotDetected); Bordetella parapertussis PCR Not Detected (NotDetected); Bordetella pertussis PCR Not Detected (NotDetected); Chlamydia pneumoniae PCR Not Detected (NotDetected); Coronavirus 229E PCR Not Detected (NotDetected); Coronavirus CoV-2 (COVID19)PCR Not Detected (NotDetected); Coronavirus HKU1 PCR Not Detected (NotDetected); Coronavirus NL63 PCR Not Detected (NotDetected); Coronavirus OC43PCR Not Detected (NotDetected); Human Metapneumovirus PCR Not Detected (NotDetected); Influenza A PCR Not Detected (NotDetected); Influenza B PCR Not Detected (NotDetected); Mycoplasma pneumoniae PCR Not Detected (NotDetected); Parainfluenza Virus 1 PCR Not Detected (NotDetected); Parainfluenza Virus 2 PCR Not Detected (NotDetected); Parainfluenza Virus 3 PCR Not Detected (NotDetected); Parainfluenza Virus 4 PCR Not Detected (NotDetected); Respiratory Syncytial VirusPCR Not Detected (NotDetected); Rhinovirus/Enterovirus PCR Not Detected (NotDetected)
[2025-01-12] MEDS: OPTIRAY 320 125ml IV ONE (21:57)
--- NOTE | 2025-01-12 22:14 | XRay Report ---
Exam(s): XR CXR 1 VIEW EXAM: XR Chest, 1 View CLINICAL HISTORY: Reason for exam: dyspnea. TECHNIQUE: Frontal view of the chest. COMPARISON: November 25, 2023 FINDINGS: Lungs: Unremarkable. No consolidation. Pleural space: Unremarkable. No pneumothorax. Heart: Unremarkable. No cardiomegaly. Mediastinum: Unremarkable. Normal mediastinal contour. Bones/joints: Unremarkable. No acute fracture. IMPRESSION: No acute cardiopulmonary process is identified. Electronically signed by: Marlon Sosa MD 01/12/25 22:13 PM
[2025-01-12] MEDS: SODIUM CHLORIDE 0.9% 500 ML IV ONE (22:18)
--- NOTE | 2025-01-12 22:48 | CT Scan Report ---
Exam(s): CTA CHEST IV Amt: 115 ml optiray 320 EXAM: CT Angiography Chest With Intravenous Contrast CLINICAL HISTORY: Reason for exam: dyspnea, tachypnea. TECHNIQUE: Axial computed tomographic angiography images of the chest with intravenous contrast. CTDI is 24.63 mGy and DLP is 604.46 mGy-cm. Automated exposure control was utilized for the study. A dose lowering technique was utilized adhering to the principles of ALARA. MIP reconstructed images were created and reviewed. COMPARISON: Chest x-ray from January 12, 2025, CT abdomen and pelvis from November 24, 2023. FINDINGS: Pulmonary arteries: The pulmonary arterial tree is well opacified with contrast. No pulmonary embolism is identified. Aorta: No acute findings. No thoracic aortic aneurysm. Lungs: Small amount of scattered subsegmental atelectasis in both lower lobes. The lungs are otherwise clear. No pneumothorax or pleural effusion. No mass. Pleural space: See above. Heart: Unremarkable. No cardiomegaly. No significant pericardial effusion. No evidence of RV dysfunction. Bones/joints: No acute fracture. No dislocation. Soft tissues: Unremarkable. Lymph nodes: Unremarkable. No enlarged lymph nodes. Liver: Fatty infiltration of the liver. Gallbladder and bile ducts: Previous cholecystectomy. Adrenals: 2 cm left adrenal nodule, unchanged. IMPRESSION: 1. Small amount of scattered subsegmental atelectasis in both lower lobes. The lungs are otherwise clear. No pneumothorax or pleural effusion. 2. The pulmonary arterial tree is well opacified with contrast. No pulmonary embolism is identified. Electronically signed by: Marlon Sosa MD 01/12/25 22:47 PM
--- NOTE | 2025-01-12 22:49 | CT Scan Report ---
Exam(s): CT NECK With Contrast IV Amt: 115 ml optiray 320 EXAM: CT Neck With Intravenous Contrast CLINICAL HISTORY: Reason for exam: dyspnea, tachypnea. TECHNIQUE: Axial computed tomography images of the neck with intravenous contrast. CTDI is 37.82 mGy and DLP is 1230.67 mGy-cm. Automated exposure control was utilized for the study. A dose lowering technique was utilized adhering to the principles of ALARA. CONTRAST: Patient received 115 ml optiray 320 of IV contrast COMPARISON: No relevant prior studies available. FINDINGS: Oropharynx: Unremarkable. No significant tonsillar enlargement. No peritonsillar abscess. Hypopharynx: Unremarkable. Larynx: Unremarkable. Normal epiglottis. Trachea: Unremarkable. Retropharyngeal space: Unremarkable. Submandibular/parotid glands: Unremarkable. Glands are normal in size. Thyroid: Smooth oval 8 mm nodule the left thyroid lobe. Bones/joints: No acute fracture. Soft tissues: Unremarkable. Vasculature: No acute findings. Lymph nodes: Unremarkable. No lymphadenopathy. Lung apices: Unremarkable as visualized. IMPRESSION: No acute findings in the neck. Electronically signed by: Marlon Sosa MD 01/12/25 22:48 PM
--- NOTE | 2025-01-13 00:27 | Emergency Department Note ---
ED Visit Note I was consulted by the Advanced Practice Provider, Jett Dumont PA-C. I personally made/approved the management plan and take responsibility for the patient management. I performed a substantive portion of the visit. This includes the aspects of: -History/Physical/Personally seeing the patient -MDM .
--- NOTE | 2025-01-13 01:36 | History & Physical Report ---
Date of Service January 13, 2025 Assessment & Plan (1) SOB (shortness of breath): Plan: 59-year-old female with past medical history significant for prediabetes, seasonal allergic rhinitis, extrinsic asthma, obstructive sleep apnea, morbid obesity, GERD, CKD stage III, history of calculus of kidney, history of migraines, moderate depression, presents with shortness of breath and cough. Patient states she has influenza about 2 weeks ago. Since then she has dry cough. But since last 2 days feeling short of breath which got worse today and came to the ER. In the ER she was having wheezing mostly from the upper respiratory. Voice was soft. She was given Decadron and nebs. And CT soft tissue neck and CTA chest unremarkable. She was saturating 87% room air requiring 2 L oxygen. Initially was tachypneic. Currently hemodynamics are okay. Currently resting comfortably. Still speaking in low voice. Says she was having some low-grade fevers. Denies any headache. No neck pain. Has sore throat from coughing. Has some chest pain from coughing. No nausea. Appetite is okay. No abdominal pain. Normal bowel and bladder movements. Shortness of breath Tachypnea Hypoxia requiring oxygen CTA chest unremarkable except for some atelectasis CT soft tissue neck unremarkable Respiratory BioFire negative Procalcitonin negative, VBG okay Initial lactic acid 3.2 but repeat is 1.4 Troponin negative Will follow repeat cardiac enzyme History of situational asthma as per patient but did not use inhalers for long time Continue with IV Solu-Medrol 40 mg twice daily, DuoNebs owaogq-xan-wemax and as needed Cough suppressants Will monitor Obstructive sleep apnea CPAP nightly Morbid obesity Counseling GERD on omeprazole Depression On fluoxetine and bupropion Prediabetes Will follow HbA1c levels DVT prophylaxis Lovenox Disposition Med/telemetry Full code History of Present Illness Chief Complaint: Shortness of breath Primary Care Provider: Abena Harden MD 59-year-old female with past medical history significant for prediabetes, seasonal allergic rhinitis, extrinsic asthma, obstructive sleep apnea, morbid obesity, GERD, CKD stage III, history of calculus of kidney, history of migraines, moderate depression, presents with shortness of breath and cough. Patient states she has influenza about 2 weeks ago. Since then she has dry cough. But since last 2 days feeling short of breath which got worse today and came to the ER. In the ER she was having wheezing mostly from the upper respiratory. Voice was soft. She was given Decadron and nebs. And CT soft tissue neck and CTA chest unremarkable. She was saturating 87% room air requiring 2 L oxygen. Initially was tachypneic. Currently hemodynamics are okay. Currently resting comfortably. Still speaking in low voice. Says she was having some low-grade fevers. Denies any headache. No neck pain. Has sore throat from coughing. Has some chest pain from coughing. No nausea. Appetite is okay. No abdominal pain. Normal bowel and bladder movements. Past medical history. As mentioned above. Past surgical history. Colonoscopy. EGD with endoscopic ultrasound. EGD. Fragment kidney stone by shockwave. Laparoscopic cholecystectomy. Ligation oviducts. Appendectomy. Bilateral cataracts. Social history. No smoking. Alcohol rarely. No drug use. Family history. Father had MA. Hypertension. Hyperlipidemia. Thyroid disorder. Mother has allergies. Kidney stones. Brother has diabetes. Allergies Allergy/AdvReac Type Severity Reaction Status Date / Time Sulfa (Sulfonamide Allergy Intermediate Hives, Verified 01/12/25 20:44 Antibiotics) swelling, high temp morphine AdvReac Severe Severe Verified 01/12/25 20:44 migraines Home Medications Medication Instructions Recorded Confirmed Type Lactobacil.acidophilus-Bifido.animalis 1 cap PO QAM 11/25/23 01/12/25 History 5 billion cell sprinkle capsule (Probiotic) amitriptyline 10 mg tablet 20 mg PO HS 11/25/23 01/12/25 History bupropion HCl 100 mg tablet,12 hr 100 mg PO QAM 11/25/23 01/13/25 History sustained-release cetirizine 10 mg tablet (Zyrtec) 10 mg PO QAM 11/25/23 01/12/25 History cinnamon bark 500 mg capsule 500 mg PO HS 11/25/23 01/12/25 History (Cinnamon) cranberry concentrate-ascorbic 2 cap PO QAM 11/25/23 01/12/25 History acid 140 mg-100 mg capsule (Cranberry Plus Vitamin C) docusate sodium 100 mg capsule 100 mg PO QAM 11/25/23 01/12/25 History (Colace) fluoxetine 40 mg capsule 40 mg PO QAM 11/25/23 01/12/25 History glucosamine 750 eg-ksddreksntx-nct 1 tab PO 3XWK 11/25/23 01/12/25 History no1 644 mg-C 30 mg-khanh 1 mg tablet (Osteo Bi-Flex Triple Strength) lorazepam 1 mg tablet 0.5 - 1 mg PO HS PRN SLEEP/ANXIETY 11/25/23 01/12/25 History ramyftopddkp-kcnqeqpu-eybimd 1 tab PO HS 11/25/23 01/12/25 History tablet (Multivitamin 50 Plus tablet) omeprazole 40 mg capsule,delayed 40 mg PO QAM 11/25/23 01/12/25 History release turmeric 400 mg capsule 400 mg PO HS 11/25/23 01/12/25 History phenazopyridine 200 mg tablet 200 mg PO Q8H PRN bladder 12/30/23 01/12/25 History (Pyridium) irritation acetaminophen 500 mg tablet 1,000 mg PO DIRECTED PRN 01/12/25 01/12/25 History (Tylenol Extra Strength) PAIN/FEVER albuterol sulfate 90 mcg/actuation 2 puff inhalation QID PRN 01/12/25 01/12/25 History aerosol inhaler Shortness Of Breath Or Wheezing bupropion HCl 200 mg tablet,12 hr 200 mg PO QAM 01/12/25 01/12/25 History sustained-release Past Med/Surg History Problem List (Updated 01/13/25 @ 01:32 by Rivera Liu MD) SOB (shortness of breath) Tachypnea (Acute) Dyspnea (Acute) Encounter for pre-operative examination Flank pain UTI (urinary tract infection) Left ureteral calculus (Acute) Kidney stone (Chronic) Renal calculus, left Migraine (Chronic) Gastroparesis S/P appendectomy (Chronic) S/P tubal ligation (Chronic) H/O hand surgery (Chronic) right, large wart removed H/O colonoscopy (Chronic) Renal stones FAIZAN (obstructive sleep apnea) CPAP Medical History Pulmonary hypertension Echo 12/2023: PASP 40 mmHg. Mild pulmonary hypertension present. Morbid obesity Prediabetes History of COVID-19 ~07/2023 (home test)- symptoms resolved Depression Anxiety Insomnia GERD (gastroesophageal reflux disease) Surgical History History of repair of right rotator cuff Hx of bilateral cataract extraction Hx of cystoscopy left side, stent placed Hx of colonoscopy with polypectomy Social History Smoking Status: Never smoker Second Hand Exposure: No; Do You Dip or Chew Tobacco: No; Tobacco Cessation Education Requested by Patient: No Hx Alcohol Use: Yes Alcohol type: hard liquor Hx Substance Use: No Preferred Language: Luxembourgish Communication Ability: Effective 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 ENT- oropharynx clear Neck- supple, no JVD. Lungs- clear to auscultation no wheezing or crackles Heart- regular rhythm; no murmur, no gallop. Abdomen- normal bowel sounds, soft, nontender, no distension Extremities- no pretibial edema, no erythema seen Neuro- alert, oriented PERRL, no facial palsy; no dysarthria; moves extremities Results & Data Results & Data Vital Signs (Past 12 Hours) Vital Signs Temp Pulse Pulse Resp BP BP Pulse Ox 01/13/25 01:12 86 01/12/25 22:51 92 01/12/25 22:51 87 L 01/12/25 21:39 85 24 115/63 92 01/12/25 20:49 79 01/12/25 20:36 85 34 H 96 01/12/25 20:33 01/12/25 20:26 80 30 H 123/76 95 01/12/25 20:26 01/12/25 20:04 36.4 C L 90 26 H 129/84 96 O2 Del Method O2 Flow Rate 01/13/25 01:12 01/12/25 22:51 Nasal Cannula 2 01/12/25 22:51 Room Air 01/12/25 21:39 Room Air 01/12/25 20:49 01/12/25 20:36 Room Air 01/12/25 20:33 Room Air 01/12/25 20:26 Room Air 01/12/25 20:26 Room Air 01/12/25 20:04 Room Air Diagnostic Findings Laboratory Results WBC 8.88 K/ul (4.8-10.8) 01/12/25 20:20 RBC 5.47 M/uL (4.20-5.40) H 01/12/25 20:20 Hgb 14.6 g/dl (12.0-16.0) 01/12/25 20:20 Hct 45.5 % (37.0-47.0) 01/12/25 20:20 MCV 83.2 fL (80.0-100.0) 01/12/25 20:20 MCH 26.7 pg (25.0-34.0) 01/12/25 20:20 MCHC 32.1 g/dL (32.0-36.0) 01/12/25 20:20 RDW Std Deviation 44.6 fL (36.4-46.3) 01/12/25 20:20 RDW Coeff of Harsh 14.8 % (11.5-14.5) H 01/12/25 20:20 Plt Count 370 K/uL (130-400) 01/12/25 20:20 MPV 8.5 fL (9.4-12.4) L 01/12/25 20:20 Immature Gran % (Auto) 0.2 % 01/12/25 20:20 Neut % (Auto) 54.6 % 01/12/25 20:20 Lymph % (Auto) 35.2 % 01/12/25 20:20 [place] % (Auto) 8.6 % 01/12/25 20:20 Eos % (Auto) 0.9 % 01/12/25 20:20 Baso % (Auto) 0.5 % 01/12/25 20:20 Neut # (Auto) 4.85 K/uL (1.40-6.50) 01/12/25 20:20 Lymph # (Auto) 3.13 K/uL (1.20-3.40) 01/12/25 20:20 [place] # (Auto) 0.76 K/uL (0.11-0.59) H 01/12/25 20:20 Eos # (Auto) 0.08 K/uL (0.00-0.50) 01/12/25 20:20 Baso # (Auto) 0.04 K/uL (0.00-0.20) 01/12/25 20:20 Immature Gran # (Auto) 0.02 K/uL (0.01-0.20) 01/12/25 20:20 PT 11.7 Seconds (9.0-12.0) 01/12/25 20:20 INR 1.1 (0.9-1.1) 01/12/25 20:20 APTT 25 Seconds (21-31) 01/12/25 20:20 PTT Ratio 0.9 01/12/25 20:20 VBG pH 7.42 (7.36-7.41) H 01/12/25 20:20 VBG pCO2 43 mmHg (38-50) 01/12/25 20:20 VBG pO2 43 mmHg 01/12/25 20:20 VBG HCO3 28 mmol/L 01/12/25 20:20 VBG O2 Saturation 73.3 % 01/12/25 20:20 VBG Base Excess 2.9 mEq/L 01/12/25 20:20 Sodium 141 mmol/L (136-145) 01/12/25 20:20 Potassium 3.7 mmol/L (3.5-5.1) 01/12/25 20:20 Chloride 103 mmol/L (98-107) 01/12/25 20:20 Carbon Dioxide 28 mmol/L (21-32) 01/12/25 20:20 Anion Gap 10 (3-11) 01/12/25 20:20 BUN 11 mg/dl (6-23) 01/12/25 20:20 Creatinine 0.96 mg/dl (0.6-1.2) 01/12/25 20:20 Est Cr Clr Drug Dosing 85.3 ml/min 01/12/25 20:20 eGFR 68.16 01/12/25 20:20 BUN/Creatinine Ratio 11.5 (10-20) 01/12/25 20:20 Glucose 98 mg/dl (70-99(Fasting)) 01/12/25 20:20 Lactate 1.4 mmol/L (0.4-2.0) 01/12/25 23:49 Calcium 10.1 mg/dl (8.6-10.3) 01/12/25 20:20 Magnesium 2.1 mg/dl (1.7-2.4) 01/12/25 20:20 Total Bilirubin 0.9 mg/dl (0.2-1.0) 01/12/25 20:20 AST 34 U/L (13-39) 01/12/25 20:20 ALT 35 U/L (7-52) 01/12/25 20:20 Alkaline Phosphatase 67 U/L (34-104) 01/12/25 20:20 Troponin I High Sens < 2.3 pg/ml (0-14) 01/12/25 20:20 B-Natriuretic Peptide 28 pg/ml (0-100) 01/12/25 20:20 Total Protein 7.9 gm/dl (6.0-8.3) 01/12/25 20:20 Albumin 4.5 gm/dl (3.4-5.0) 01/12/25 20:20 Globulin 3.4 gm/dl (2.5-4.0) 01/12/25 20:20 Albumin/Globulin Ratio 1.3 (0.9-2) 01/12/25 20:20 Procalcitonin < 0.02 ng/ml (0-0.5) 01/12/25 20:20 TSH 1.485 uIu/ml (0.300-4.500) 01/12/25 20:20 Adenovirus (PCR) Not Detected (NotDetected) 01/12/25 20:20 B. pertussis DNA (PCR) Not Detected (NotDetected) 01/12/25 20:20 B.parapertussis DNA PCR Not Detected (NotDetected) 01/12/25 20:20 C. pneumoniae DNA (PCR) Not Detected (NotDetected) 01/12/25 20:20 Coronavirus OC43 (PCR) Not Detected (NotDetected) 01/12/25 20:20 Coronavirus HKU1 (PCR) Not Detected (NotDetected) 01/12/25 20:20 Coronavirus 229E (PCR) Not Detected (NotDetected) 01/12/25 20:20 SARS-CoV-2 (PCR) Not Detected (NotDetected) 01/12/25 20:20 Coronavirus NL63 (PCR) Not Detected (NotDetected) 01/12/25 20:20 Human Metapneumovir PCR Not Detected (NotDetected) 01/12/25 20:20 Influenza Type A (PCR) Not Detected (NotDetected) 01/12/25 20:20 Influenza Type B (PCR) Not Detected (NotDetected) 01/12/25 20:20 M. pneumoniae (PCR) Not Detected (NotDetected) 01/12/25 20:20 Parainfluenza 1 (PCR) Not Detected (NotDetected) 01/12/25 20:20 Parainfluenza 2 (PCR) Not Detected (NotDetected) 01/12/25 20:20 Parainfluenza 3 (PCR) Not Detected (NotDetected) 01/12/25 20:20 Parainfluenza 4 (PCR) Not Detected (NotDetected) 01/12/25 20:20 RSV (PCR) Not Detected (NotDetected) 01/12/25 20:20 Entero/Rhino (PCR) Not Detected (NotDetected) 01/12/25 20:20 Impressions Chest CTA 01/12/25 20:24 Exam(s): CTA CHEST IV Amt: 115 ml optiray 320 EXAM: CT Angiography Chest With Intravenous Contrast CLINICAL HISTORY: Reason for exam: dyspnea, tachypnea. TECHNIQUE: Axial computed tomographic angiography images of the chest with intravenous contrast. CTDI is 24.63 mGy and DLP is 604.46 mGy-cm. Automated exposure control was utilized for the study. A dose lowering technique was utilized adhering to the principles of ALARA. MIP reconstructed images were created and reviewed. COMPARISON: Chest x-ray from January 12, 2025, CT abdomen and pelvis from November 24, 2023. FINDINGS: Pulmonary arteries: The pulmonary arterial tree is well opacified with contrast. No pulmonary embolism is identified. Aorta: No acute findings. No thoracic aortic aneurysm. Lungs: Small amount of scattered subsegmental atelectasis in both lower lobes. The lungs are otherwise clear. No pneumothorax or pleural effusion. No mass. Pleural space: See above. Heart: Unremarkable. No cardiomegaly. No significant pericardial effusion. No evidence of RV dysfunction. Bones/joints: No acute fracture. No dislocation. Soft tissues: Unremarkable. Lymph nodes: Unremarkable. No enlarged lymph nodes. Liver: Fatty infiltration of the liver. Gallbladder and bile ducts: Previous cholecystectomy. Adrenals: 2 cm left adrenal nodule, unchanged. IMPRESSION: 1. Small amount of scattered subsegmental atelectasis in both lower lobes. The lungs are otherwise clear. No pneumothorax or pleural effusion. 2. The pulmonary arterial tree is well opacified with contrast. No pulmonary embolism is identified. Electronically signed by: Marlon Sosa MD 01/12/25 22:47 PM Soft Tissue Neck CT 01/12/25 20:24 Exam(s): CT NECK With Contrast IV Amt: 115 ml optiray 320 EXAM: CT Neck With Intravenous Contrast CLINICAL HISTORY: Reason for exam: dyspnea, tachypnea. TECHNIQUE: Axial computed tomography images of the neck with intravenous contrast. CTDI is 37.82 mGy and DLP is 1230.67 mGy-cm. Automated exposure control was utilized for the study. A dose lowering technique was utilized adhering to the principles of ALARA. CONTRAST: Patient received 115 ml optiray 320 of IV contrast COMPARISON: No relevant prior studies available. FINDINGS: Oropharynx: Unremarkable. No significant tonsillar enlargement. No peritonsillar abscess. Hypopharynx: Unremarkable. Larynx: Unremarkable. Normal epiglottis. Trachea: Unremarkable. Retropharyngeal space: Unremarkable. Submandibular/parotid glands: Unremarkable. Glands are normal in size. Thyroid: Smooth oval 8 mm nodule the left thyroid lobe. Bones/joints: No acute fracture. Soft tissues: Unremarkable. Vasculature: No acute findings. Lymph nodes: Unremarkable. No lymphadenopathy. Lung apices: Unremarkable as visualized. IMPRESSION: No acute findings in the neck. Electronically signed by: Marlon Sosa MD 01/12/25 22:48 PM Chest X-Ray 01/12/25 20:25 Exam(s): XR CXR 1 VIEW EXAM: XR Chest, 1 View CLINICAL HISTORY: Reason for exam: dyspnea. TECHNIQUE: Frontal view of the chest. COMPARISON: November 25, 2023 FINDINGS: Lungs: Unremarkable. No consolidation. Pleural space: Unremarkable. No pneumothorax. Heart: Unremarkable. No cardiomegaly. Mediastinum: Unremarkable. Normal mediastinal contour. Bones/joints: Unremarkable. No acute fracture. IMPRESSION: No acute cardiopulmonary process is identified. Electronically signed by: Marlon Sosa MD 01/12/25 22:13 PM ECG Additional Comments: ECG. Normal sinus rhythm rate of 85. Nonspecific T wave abnormalities inferior and lateral leads. Code Status & VTE Plan VTE Prophylaxis Plan VTE Prophylaxis will be ordered: Yes
[2025-01-13] MEDS: ALBUT/IPRATROP 3MG/0.5MG NEB 3 ML VIAL ONE (02:09)
[2025-01-13] MEDS: ALBUT/IPRATROP 3MG/0.5MG NEB 3 ML VIAL NEB STA (02:11)
[2025-01-13] MEDS ORDERED: NON-FORMULARY MEDICATION (Glucosam-Chon-Msm1-C-Mang-Bosw [Osteo Bi-Flex Triple Strength] 7 PO SCH (02:38)
[2025-01-13] MEDS ORDERED: POLYETHYLENE (MIRALAX) 17 GM PACK PO PRN (02:38)
[2025-01-13] MEDS ORDERED: ALBUT/IPRATROP 3MG/0.5MG NEB 3 ML VIAL NEB PRN ×2 (02:38→14:14)
[2025-01-13] MEDS ORDERED: ALBUTEROL HFA 8 GM INHALER INH PRN (02:38)
[2025-01-13] MEDS ORDERED: NITROGLYCERIN SL 0.4 MG/TAB TAB SL PRN (02:38)
[2025-01-13] MEDS ORDERED: INFLUENZA VACC TS2024-25(6m+)/PF (IIV3) 0.5mL Syr IM ONE (03:03)
[2025-01-13] MEDS: BENZONATATE 100 MG CAPSULE PO ONE (03:09)
--- OUTSIDE RECORDS SUMMARY | 2025-01-13 05:18 | External Medical Summary | Summary of Care ---
Author Name Unknown Organization [facility] Address [address] [place] [address] Phone [phone] Care Team Providers Care Digitizer Operator Name Role Phone Abena Harden MD Primary Care Provider [phone] Reason for Visit * Reason Onset Date Comments Durable Medical Equipment 10/22/2024 CPAP r eplacement Encounter Details Date Type Department Care Team (Late st Contact Info) Description 10/22/2024 Telephone [facility] Disorders [facility] [address] [facility] [phone] [facility] [address] [facility] [address] Durable Medical Equipment (CPAP replacement ) Allergies Active Allergy Reactions Criticality Noted Date Comments Dust 09/13/2016 Nasal congestion Sulfa Antibiotics 04/18/2000 hives Trimethoprim Unknown 05/30/2011 documented as of this encounter (statuses as of 10/22/2024) Medications NASAL SALINE 0.65 % NA SOLNIndications: Allergic rhinitis 2 squirts each nostril morning and night and every 2-4 hrs as needed for nasal dryness or congestion 1 0 6 Active MULTIVITAMINS PO TABS 1 TABLET DAILY 3 Active Cetirizine HCl 10 MG Capsule Take 1 Capsule by mouth in the morning. Active Probiotic Product (PROBIOTIC & ACIDOPHILUS EX ST) Capsule Take 1 Cap by mouth 2 times a day. Active LORazepam (ATIVAN) 1 MG TabletIndication s:Adjustment disorder with depressed mood,Anxiety state 1/2-1 tablet at bedtime as needed 30 Tab 5 7 Active Cranberry-Vitami n C-Vitamin E 4200-20-3 MG-MG-UNIT Oral Capsule Take 2 Caps by mouth daily. Active Cinnamon 500 MG Oral Tablet 100 mg daily 0 Active CPAP every night at bedtime. Active Turmeric 500 MG Oral Capsule Take 1 Capsule by mouth in the morning. Active Osteo Bi-Flex Triple Strength Oral Tablet Take by mouth once a day on Friday, Friday, and Friday only . Active Mometasone Furoate 50 MCG/ACT Nasal SuspensionIndica tions:Allergic rhinitis Administer 2 Sprays into each nostril in the morning and 2 Sprays before bedtime. 17 g 5 2 Active Tamsulosin HCl 0.4 MG Oral Capsule (Flomax) Take 1 Capsule by mouth at bedtime. 4 Active Phenazopyridine HCl 200 MG Oral Tablet (Pyridium) Take 1 Tablet by mouth in the morning and 1 Tablet at noon and 1 Tablet before bedtime. Active Albuterol Sulfate HFA 108 (90 Base) MCG/ACT Inhalation Aerosol SolutionIndicati ons:Mild intermittent extrinsic asthma without complication Inhale 2 Puffs by mouth every 6 hours as needed for Shortness of Breath. 18 g 2 4 Active Additional Information Patient not taking.Reported on 10/20/2024 Amitriptyline HCl 10 MG Oral Tablet (Elavil)Indicati ons:Persistent insomnia,Tension headache TAKE 2 TABLETS BY MOUTH AT BEDTIME 180 Tablet 3 4 Active Phentermine HCl 8 MG Oral Tablet (Lomaira)Indicat ions:Morbid obesity with body mass index (BMI) of 40.0 to 49.9 (HCC),Abnormal weight gain Take 8 mg by mouth in the morning. Do not start before March 03, 2024. 30 Tablet 4 Active Additional Information Patient not taking.Reported on 10/20/2024 FLUoxetine HCl 40 MG Oral Capsule (PROzac) Take 1 Capsule by mouth in the morning. 90 Capsule 3 4 Active Omeprazole 40 MG Oral Capsule Delayed Release (PriLOSEC)Indica tions:Gastroesop hageal reflux disease without esophagitis TAKE 1 CAPSULE BY MOUTH EVERY DAY 1 HOUR BEFORE THE FIRST MEAL OF THE DAY 90 Capsule 1 4 Active buPROPion HCl ER (SR) 100 MG Oral Tablet Extended Release 12 Hour (Wellbutrin SR)Indications:M oderate episode of recurrent major depressive disorder (HCC) Take 1 Tablet by mouth in the morning. Along with 200 mg. 90 Tablet 3 4 Active buPROPion HCl ER (SR) 200 MG Oral Tablet Extended Release 12 Hour (Wellbutrin SR)Indications:M oderate episode of recurrent major depressive disorder (HCC) Take 1 Tablet by mouth in the morning. Along with 100 mg to make 300 mg daily. 90 Tablet 3 4 Active Hospital, Clinic, or Other Facility Administered Medication Ordered Dose Route Frequency Start Date End Date Status Albuterol Sulfate (Proventil) (2.5 MG/3ML) 0.083% inhalation solution 2.5 mgIndications:Mild intermittent extrinsic asthma without complication 2.5 mg NEBULIZER ONCE PRN 11/24/2023 11/23/2024 Active documented as of this encounter (statuses as of 10/22/2024) Active Problems Problem Noted Date Diagnosed Date Stage 3a chronic kidney disease 09/11/2020 Overview: Per CKD protocol Prediabetes 05/15/2020 Overview: Per Prediabetes protocol Gastroesophageal reflux disease without esophagi tis 11/17/2019 FAIZAN (obstructive sleep apnea) 02/03/2019 Extrinsic asthma without complication 10/26/2018 Moderate episode of recurrent major depressive d isorder 12/16/2016 Morbid obesity with BMI of 40.0-44.9, adult 04/03 Overview (04/16/2010): Per Obesity Protocol, #19 Seasonal allergic rhinitis due to pollen 006 Calculus of kidney 07/04/2004 Intractable migraine with aura without status mi grainosus 10/01/2002 documented as of this encounter (statuses as of 10/22/2024) Resolved Problems Problem Noted Date Diagnosed Date Resolved Date Kidney disease, chronic, sta ge III (GFR 30-59 ml/min) 11/16/2018 09/14/2020 Overview: Per CKD protocol #1 DYSFUNCT EUSTACHIAN TUBE 02/27/2006 Wheezing 11/07/2005 10/26/2018 Overview (11/07/2005): WITH RESPIRATORY INFECTIONS ADVANCE DIRECTIVE INFORMATION 09/13/2005 09/06/2024 Overview (09/13/2005): Yes, Patient instructed to provide copy of advance directive for provider to review and to be scanned into Electronic Medical Record Chronic rhinitis 09/13/2005 11/07/2005 Overview (09/13/2005): Rhinitis, Chronic documented as of this encounter (statuses as of 10/22/2024) Immunizations Name Administration Dates Next Due COVID-19 mRNA, LNP-s, No Pre serve, 2-Dose Series (Moderna) 12/13/2020,11/15/2020 Pneumococcal Conjugate Vacci ne, 20-valent ([id number]) 08/05/2022 Pneumococcal Polysaccharide PPV23 (Pneumovax) 02/03/2019 Seasonal Influenza Vac., MDV , IM, 0.5 mL (Fluzone) 08/17/2020,07/18/2009,09/14/2007 Seasonal Influenza, PF, 6 M & above, IM , (FluLaval or Fluzone) 11/24/2023,08/05/2022,08/27/2021,10/01,10/26/2018 Seasonal Influenza, Quadriva lent, No Preserve, IM 08/21/2020,07/05/2016 TD, Preservative Free 07/31/2016 TDAP, Age 7 and older, IM (Adacel) 03/28/2011 Zoster Vaccine Recombinant (Shingrix) 05/01/2020 ,11/17/2019 documented as of this encounter Social History Tobacco Use Types Packs/Day Years Used Date Smoking Tobacco: Never Passive Smoke Exposure: Never Smokeless Tobacco: Never Comments:no passive smoke ex posures Alcohol Use Standard Drinks/Week Comments Yes 0 (1 standard drink = 0.6 oz pur e alcohol) rare PHQ-2 Answer Date Recorded PHQ-2 Score 2 09/05/2018 Hunger Vital Sign Answer Date Recorded Worried About Running Out of Food in the Last Ye ar Never true 11/17/2019 Ran Out of Food in the Last Year Never true 11/17/2019 Comments No Sex and Gender Information Value Date Recorded Sex Assigned at Female 11/13/2023 10:10 PM EST Legal Sex Female 5:01 AM EST Gender Identity Female 11/13/2023 10:10 PM EST Sexual Orientation Straight 11/13/2023 10 :10 PM EST 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 documented in this encounter Plan of Treatment Upcoming Encounters Date Type Department Care Team (Late st Contact Info) Description 12/22/2024 10:40 AM EST Telemedicine Nutrition & Weight Management, [place] [address] [place] [address] Anamika Mckenna MD [address] [place] [address] Health Maintenance Due Date Last Done Comments Hepatitis C Screening 1983 Hepatitis B Vaccine (1 of 3 - 19+ 3-dose series) 1984 HPV/Co-Test 1995 Cologuard 2010 Fecal Occult Blood Test 2010 Sigmoidoscopy 2010 Depression Monitoring 02/04/2020 02/03/2019 Mammogram 11/25/2023 11/25/2022, 11/0 12/2020, 11/19/2019, Additional history exists GFR 06/16/2024 12/17/2023, 11/03, 08/05/2022, Additional history exists COVID-19 Vaccine ( season) 2024 12/13/2020, 11/15/2020 Influenza Vaccine (FLU shot) (#1) 2024 11/24/2023, 08/05/2022, 08/27/2021, Additional history exists Albumin/Creatinine Ratio 11/13/2024 024, 11/07/2022, 01/31/2022, Additional history exists CKD PHOS USE SMARTSET 45413 11/13/202411/03, 08/05/2022, 08/28/2021, Additional history exists HbA1c 11/13/2024 11/13/2023, 01/2022, 01/31/2022, Additional history exists CKD HGB USE SMARTSET 09230 12/17/202412/17, 12/17/2023, 11/13/2023, Additional history exists Cervical Cancer Screening 01/31/2025 Pap Smear 01/31/2025 01/31/2022, 10/04, 11/15/2014, Additional history exists Colonoscopy 04/02/2026 04/02/2016, 04/02/2016 Colorectal Cancer Screening 04/02/2026 DTap/Tdap Vaccines (4 - Td or Tdap) 07/31/2026 07/31/2016, 03/28/2011, 02/02/2004, Additional history exists Lipid Panel 11/13/2028 11/13/2023, 01/2022, 08/28/2021, Additional history exists RETIRED - COLONOSCOPY-EVERY 5 YRS AGES 18-100 Discontinued 04/02/2016, 04/02/2016 Zoster Vaccines Completed 05/01/2020, 11/17/2019 Pneumococcal Vaccine: Pediatrics (0 to 5 Years) and At-Risk Patients (6 to 64 Years) Completed 08/05/2022, 02/03/2019 HPV (Gardasil) Vaccine Aged Out No lo nger eligible based on patient's age to complete this topic MENINGOCOCCAL (MENACTRA/MENVEO) Aged Out No longer eligible based on patient's age to complete this topic documented as of this encounter Medical Devices Implanted Type Area Metal Burrer Device Identifier Shelf Expiration Date Model / Serial / Lot Lens 20.0 [id number] - [id number] - [id number] Implanted:Qty: 1 on 11/26/2022 by Delbert Mason MD at OR [facility] Right: Eye [employer] 10/02/2025 HP26V-42.0 / [id number] / Envista 20.5 Implanted:Qty: 1 on 12/10/2022 by Delbert Mason MD at OR [facility] Left: Eye 07/03/2025 [id number] / [id number] / documented as of this encounter Advance Directives Documents on File Type Date Recorded Patient Sole Rougher Expl anation Advance Directives and Living Will 02/12/1991 * No Code (Latest Code Status on File) Date Activated Date Inactivated Comments 12/10/2022 11:12 AM 12/10/2022 6:32 PM This order re flects the patients wishes and were consensually agreed upon. Question Answer Comments Discussion of Advance Directives occurred with: Patient Does the patient have a Living Will? No Does the patient have Health Care Power of Attor mary? No * No Code Date Activated Date Inactivated Comments 11/26/2022 1:05 PM 11/26/2022 7:17 PM This order r eflects the patients wishes and were consensually agreed upon. Question Answer Comments Discussion of Advance Directives occurred with: Patient Does the patient have a Living Will? No Does the patient have Health Care Power of Attor mary? No Care Teams Digitizer Operator Relationship Specialty Start Date End Date Abena Harden MD [address] [place] [address] PCP - General Internal Medicine 11/02/16 documented as of this encounter
--- OUTSIDE RECORDS SUMMARY | 2025-01-13 05:18 | External Medical Summary | Summary of Care ---
Author Name Unknown Organization [facility] Address [address] [place] [address] Phone [phone] Care Team Providers Care Meat Cooler Name Role Phone Abena Harden MD Primary Care Provider [phone] Reason for Visit * Reason Comments Follow Up Encounter Details Date Type Department Care Team (Late st Contact Info) Description 10/21/2024 2:00 PM EST Telemedicine [facility] Disorders Ctr [facility] [address] [facility] [place] [phone] Beth Hamilton CRNP [address] [facility] [place] [address] FAIZAN on CPAP*; Nocturnal hypoxemia; Hypersomnia Allergies Active Allergy Reactions Criticality Noted Date Comments Dust 09/13/2016 Nasal congestion Sulfa Antibiotics 04/18/2000 hives Trimethoprim Unknown 05/30/2011 documented as of this encounter (statuses as of 10/21/2024) Medications NASAL SALINE 0.65 % NA SOLNIndications: [...] as of this encounter (statuses as of 10/21/2024) Active Problems Problem Noted Date Diagnosed Date [...] as of this encounter (statuses as of 10/21/2024) Resolved Problems Problem Noted Date Diagnosed Date [...] as of this encounter (statuses as of 10/21/2024) Immunizations Name Administration Dates Next Due COVID-19 mRNA, LNP-s, No Pre serve, 2-Dose Series (Moderna) 12/13/2020,11/15/2020 Pneumococcal Conjugate Vacci ne, 20-valent ([id number]) 08/05/2022 Pneumococcal Polysaccharide PPV23 (Pneumovax) 02/03/2019 Seasonal [...] on file documented as of this encounter Last Filed Vital Signs Vital Sign Reading Time Taken Comments Blood Pressure - - Pulse - - Temperature - - Respiratory Rate - - Oxygen Saturation - - Inhaled Oxygen Concentration - - Weight - - Height 168.9 cm (5' 6.5") 10/20/2024 11:17 AM ES T Body Mass Index - - documented in this encounter Progress Notes * Beth Hamilton CRNP - 10/21/2024 2:07 PM EST Patient location: HOME. I was in a hospital or clinic location. After connecting through televideo,patient was verified with two unique identifiers. Patient (or authorized legal c s s representative) was then informed that this was a Telemedicine visit and being conducted confidentially over secure lines. Methods to assure confidentiality were taken. Patient acknowledged consent and understanding of pr ivacy and security of the Telemedicine visit. The patient agreed to participate. [facility] Silvia Ware is a 59 year old female seen today for follow-up of moderate obstructive sleep apnea. Initially presented with morning headaches, insomnia, snoring, gasping arousals and EDS (ESS 16, FOSQ 26). -PSG 12/2014 (wt 258): AHI 5.2, SpO2 <89% 20 minutes, PLMI 20 -HSAT 12/04/18 (wt 267): SONU 15.8, SpO2 <89% with 29.6 minutes -Noct ox APAP/RA 05/27/19 (wt 264): SpO2 nava 88%, 0.33 minutes <89% Interim History: CPAP used near nightly with exception of when she falls asleep on the couch. She may also not use it if she feels stuffy or has throat dryness. Sleep schedule is variable. Averaging 8-9 hours of total sleep. Will nap some evenings for about an hour, 2-3 days a week when working from home. Recent episode of depression, end Aug-Sep. Rare use of lorazepam if needed at bedtime. Denies drowsy driving. Denies symptoms suggestive of RLS. Weight is up, around 285 lb. Compliance Data: 30 day report ending 10/19/2024 % total days used: 70 % days used > 4 hours: 67 Average hours per day used: 5 hours 41 mins Large leak: 0 mins rAHI: 3.8 p90%: 13.3 cmH2O Equipment: DME Provider: [employer] Device: [employer] Settin-20 cmH20 (ordered 8-13) Interface Type: [employer] - no suspicion for mouth leak Humidifier: 02/02 Cleaning: reviewed [place] Sleepiness Scale Question 10/20/2024 11:20 AM EST - Filed by Ana Maria Denton LPN What is the chance you will doze off in the following situation? Sitting and reading Moderate chance of dozing Watching TV Moderate chance of dozing Sitting inactive in a public place, such as a theater or meeting Slight chance of dozing As a passenger in a car for an hour without a break High chance of dozing Lying down to rest in the afternoon when circumstances permit High chance of dozing When sitting and talking to someone Slight chance of dozing When sitting quietly after lunch without alcohol Moderate chance of dozing In a car, while stopped for a few minutes in traffic No chance of dozing Score (range: 0 - 24) 14 Problem List: Patient Active Problem List Diagnosis Intractable migraine with aura without status migrainosus Seasonal allergic rhinitis due to pollen Morbid obesity with BMI of 40.0-44.9, adult (HCC) Moderate episode of recurrent major depressive disorder (HCC) Calculus of kidney Extrinsic asthma without complication FAIZAN (obstructive sleep apnea) Gastroesophageal reflux disease without esophagitis Prediabetes Stage 3a chronic kidney disease Current Medications: Current Outpatient Medications Medication Sig Dispense Refill buPROPion HCl ER (SR) 100 MG Oral Tablet Extended Release 12 Hour (Wellbutrin SR) Take 1 Tablet by mouth in the morning. Along with 200 mg. 90 Tablet 3 buPROPion HCl ER (SR) 200 MG Oral Tablet Extended Release 12 Hour (Wellbutrin SR) Take 1 Tablet by mouth in the morning. Along with 100 mg to make 300 mg daily. 90 Tablet 3 Omeprazole 40 MG Oral Capsule Delayed Release (PriLOSEC) TAKE 1 CAPSULE BY MOUTH EVERY DAY 1 HOUR BEFORE THE FIRST MEAL OF THE DAY 90 Capsule 1 FLUoxetine HCl 40 MG Oral Capsule (PROzac) Take 1 Capsule by mouth in the morning. 90 Capsule 3 Amitriptyline HCl 10 MG Oral Tablet (Elavil) TAKE 2 TABLETS BY MOUTH AT BEDTIME 180 Tablet 3 Mometasone Furoate 50 MCG/ACT Nasal Suspension Administer 2 Sprays into each nostril in the morningand 2 Sprays before bedtime. 17 g 5 Osteo Bi-Flex Triple Strength Oral Tablet Take by mouth once a day on Friday, Friday, and ly . Turmeric 500 MG Oral Capsule Take 1 Capsule by mouth in the morning. CPAP every night at bedtime. Cinnamon 500 MG Oral Tablet 100 mg daily Cranberry-Vitamin C-Vitamin E 4200-20-3 MG-MG-UNIT Oral Capsule Take 2 Caps by mouth daily. LORazepam (ATIVAN) 1 MG Tablet 1/2-1 tablet at bedtime as needed 30 Tab 5 Cetirizine HCl 10 MG Capsule Take 1 Capsule by mouth in the morning. Probiotic Product (PROBIOTIC & ACIDOPHILUS EX ST) Capsule Take 1 Cap by mouth 2 times a day. MULTIVITAMINS PO TABS 1 TABLET DAILY NASAL SALINE 0.65 % NA SOLN 2 squirts each nostril morning and night and every 2-4 hrs as needed for nasal dryness or congestion 1 0 Phentermine HCl 8 MG Oral Tablet (Lomaira) Take 8 mg by mouth in the morning. Do not start before March 03, 2024. (Patient not taking: Reported on 10/20/2024) 30 Tablet 0 Albuterol Sulfate HFA 108 (90 Base) MCG/ACT Inhalation Aerosol Solution Inhale 2 Puffs by mouth every 6 hours as needed for Shortness of Breath. (Patient not taking: Reported on 10/20/2024) 18 g 2 Phenazopyridine HCl 200 MG Oral Tablet (Pyridium) Take 1 Tablet by mouth in the morning and 1 Tablet at noon and 1 Tablet before bedtime. (Patient not taking: Reported on 10/20/2024) Tamsulosin HCl 0.4 MG Oral Capsule (Flomax) Take 1 Capsule by mouth at bedtime. (Patient not taking: Reported on 10/20/2024) Current Facility-Administered Medications Medication Dose Route Frequency Provider Last Rate Last Admin Albuterol Sulfate (Proventil) (2.5 MG/3ML) 0.083% inhalation solution 2.5 mg 2.5 mg Nebulizer Once PRN Abena Harden MD 2.5 mg at 12/17/23 0800 Physical Exam: Constitutional: Alert, oriented and in no acute distress Skin: No abnormal mask markings on face Chest: Normal respiratory effort at rest Neuro: Fluent speech Psych: Appropriate mood and affect. Assessment & Plan: Encounter Diagnoses Name Primary? FAIZAN on CPAP Yes Nocturnal hypoxemia Hypersomnia -compliant, therapeutic and benefiting with PAP treatment -encouraged increased use of CPAP to include all periods of sleep opportunity, total sleep time reported as 8-9 hours with average CPAP usage <6 hours -replacement CPAP ordered as her unit is >5 years old, obsolete and may not be working appropriately -routine cleaning and change of supplies as needed was encouraged -continue to avoid engaging in activities that require full alertness when feeling sleepy or tired Follow-up with Sleep Medicine in 1 year, sooner as needed. [facility] I spent a total of 20-29 minutes (exact time 22 mins) on the date of service in preparation, delivery, and documentation of the care provided to Silvia Ware excluding any time spent in the performance of separately billed services or time spent by another provider/QHP. documented in this encounter Nursing Notes * Ana Maria Denton LPN - 10/20/2024 11:20 AM EST Pt for video f/u FAIZAN on CPAP. DME - [employer] [place] Sleepiness Scale Question 10/20/2024 11:20 AM EST - Filed by Ana Maria Denton LPN What is the chance you will doze off in the following situation? Sitting and reading Moderate chance of dozing Watching TV Moderate chance of dozing Sitting inactive in a public place, such as a theater or meeting Slight chance of dozing As a passenger in a car for an hour without a break High chance of dozing Lying down to rest in the afternoon when circumstances permit High chance of dozing When sitting and talking to someone Slight chance of dozing When sitting quietly after lunch without alcohol Moderate chance of dozing In a car, while stopped for a few minutes in traffic No chance of dozing Score (range: 0 - 24) 14 documented in this encounter Plan of Treatment Upcoming Encounters Date Type Department Care Team (Late st Contact Info) Description 12/22/2024 10:40 AM EST Telemedicine Nutrition & Weight Management, [place] [address] [place] [address] Anamika Mckenna MD [address] [place] [address] Health Maintenance Due Date Last Done Comments Hepatitis C Screening 1983 Hepatitis B Vaccine (1 of 3 - 19+ 3-dose series) 1984 HPV/Co-Test 1995 Cologuard 2010 Fecal Occult Blood Test 2010 Sigmoidoscopy 2010 Depression Monitoring 02/04/2020 02/03/2019 Mammogram 11/25/2023 11/25/2022, 12/2020, 11/19/2019, Additional history exists GFR 06/16/2024 12/17/2023, 11/03, 08/05/2022, Additional history exists COVID-19 Vaccine ( season) 2024 12/13/2020, 11/15/2020 Influenza Vaccine (FLU shot) (#1) 2024 11/24/2023, 08/05/2022, 08/27/2021, Additional history exists Albumin/Creatinine Ratio 11/13/2024 024, 11/07/2022, 01/31/2022, Additional history exists CKD PHOS USE SMARTSET 50177 11/13/202411/03, 08/05/2022, 08/28/2021, Additional history exists HbA1c 11/13/2024 11/13/2023, 01/2022, 01/31/2022, Additional history exists CKD HGB USE SMARTSET 96855 12/17/202412/17, 12/17/2023, 11/13/2023, Additional history exists Cervical [...] this encounter Medical Devices Implanted Type Area Medical Chief Technician Device Identifier Shelf Expiration Date Model / Serial / Lot Lens 20.0 [id number] - [id number] - [id number] Implanted:Qty: 1 on 11/26/2022 by Delbert Mason MD at OR [facility] Right: Eye [employer] 10/02/2025 [id number]-69.0 / [id number] / Envista 20.5 Implanted:Qty: 1 on 12/10/2022 by Delbert Mason MD at OR [facility] Left: Eye 07/03/2025 [id number] / [id number] / documented as of this encounter Visit Diagnoses Diagnosis FAIZAN on CPAP- Primary Obstructive sleep apnea (adult) (pediatric) Nocturnal hypoxemia Hypoxemia Hypersomnia Hypersomnia, unspecified documented in this encounter Advance Directives Documents on File Type Date Recorded Patient Education Supervisor Expl anation Advance Directives and Living Will [...] Power of Attor mary? No Care Teams Meat Cooler Relationship Specialty Start Date End Date Abena Harden MD [address] [place] [address] PCP - General Internal Medicine 11/02/16 documented as of this encounter
--- OUTSIDE RECORDS SUMMARY | 2025-01-13 05:18 | External Medical Summary | Summary of Care ---
Author Name Unknown Organization [facility] Address [address] [place] [address] Phone [phone] Care Team Providers Care Senior Loan Processor Name Role Phone Vane Harden MD Primary Care Provider [phone] Reason for Visit * Reason Comments eRx-Medication Refill Encounter Details Date Type Department Care Team (Late st Contact Info) Description 12/26/2024 Refill General Internal Medicine [facility] [address] [place] [address] Vane Harden MD [address] [place] [address] Persistent insomnia; Tension headache; Gastroesophageal reflux disease without esophagitis Allergies Active Allergy Reactions Criticality Noted Date Comments Dust 09/13/2016 Nasal congestion Sulfa Antibiotics 04/18/2000 hives Trimethoprim Unknown 05/30/2011 documented as of this encounter (statuses as of 12/30/2024) Medications NASAL SALINE 0.65 % NA SOLNIndications :Allergic rhinitis 2 squirts each nostril morning and night and every 2-4 hrs as needed for nasal dryness or congestion 1 0 11/07/19 06 Active MULTIVITAMINS PO TABS 1 TABLET DAILY 11/18/19 13 Active Cetirizine HCl 10 MG Capsule Take 1 Capsule by mouth in the morning. Active Probiotic Product (PROBIOTIC & ACIDOPHILUS EX ST) Capsule Take 1 Cap by mouth 2 times a day. Active LORazepam (ATIVAN) 1 MG TabletIndicatio ns:Adjustment disorder with depressed mood,Anxiety state 1/2-1 tablet at bedtime as needed 30 Tab 5 04/01/20 17 Active Cranberry-Vitam in C-Vitamin E 4200-20-3 MG-MG-UNIT Oral Capsule Take 2 Caps by mouth daily. Active Cinnamon 500 MG Oral Tablet 100 mg daily 08/29/20 20 Active CPAP every night at bedtime. Active Turmeric 500 MG Oral Capsule Take 1 Capsule by mouth in the morning. Active Osteo Bi-Flex Triple Strength Oral Tablet Take by mouth once a day on Friday, Friday, and Friday only . Active Mometasone Furoate 50 MCG/ACT Nasal SuspensionIndic ations:Allergic rhinitis Administer 2 Sprays into each nostril in the morning and 2 Sprays before bedtime. 17 g 5 10/18/20 22 Active Tamsulosin HCl 0.4 MG Oral Capsule (Flomax) Take 1 Capsule by mouth at bedtime. 11/27/19 24 Active Phenazopyridine HCl 200 MG Oral Tablet (Pyridium) Take 1 Tablet by mouth in the morning and 1 Tablet at noon and 1 Tablet before bedtime. Active Albuterol Sulfate HFA 108 (90 Base) MCG/ACT Inhalation Aerosol SolutionIndicat ions:Mild intermittent extrinsic asthma without complication Inhale 2 Puffs by mouth every 6 hours as needed for Shortness of Breath. 18 g 2 12/15/19 24 Active Additional Information Patient not taking.Reported on 10/20/2024 Phentermine HCl 8 MG Oral Tablet (Lomaira)Indica tions:Morbid obesity with body mass index (BMI) of 40.0 to 49.9 (HCC),Abnormal weight gain Take 8 mg by mouth in the morning. Do not start before March 03, 2024. 30 Tablet 03/03/20 24 Active Additional Information Patient not taking.Reported on 10/20/2024 FLUoxetine HCl 40 MG Oral Capsule (PROzac) Take 1 Capsule by mouth in the morning. 90 Capsule 3 04/12/20 24 Active buPROPion HCl ER (SR) 100 MG Oral Tablet Extended Release 12 Hour (Wellbutrin SR)Indications: Moderate episode of recurrent major depressive disorder (HCC) Take 1 Tablet by mouth in the morning. Along with 200 mg. 90 Tablet 3 07/10/20 24 Active buPROPion HCl ER (SR) 200 MG Oral Tablet Extended Release 12 Hour (Wellbutrin SR)Indications: Moderate episode of recurrent major depressive disorder (HCC) Take 1 Tablet by mouth in the morning. Along with 100 mg to make 300 mg daily. 90 Tablet 3 07/10/20 24 Active Amitriptyline HCl 10 MG Oral Tablet (Elavil)Indicat ions:Persistent insomnia,Tensio n headache TAKE 2 TABLETS BY MOUTH AT BEDTIME 180 Tablet 12/28/19 25 Active Omeprazole 40 MG Oral Capsule Delayed Release (PriLOSEC)Indic ations:Gastroes ophageal reflux disease without esophagitis TAKE 1 CAPSULE BY MOUTH EVERY DAY 1 HOUR BEFORE THE FIRST MEAL OF THE DAY 90 Capsule 12/28/19 25 Active Amitriptyline HCl 10 MG Oral Tablet (Elavil)Indicat ions:Persistent insomnia,Tensio n headache TAKE 2 TABLETS BY MOUTH AT BEDTIME 180 Tablet 3 12/27/19 24 025 Discontinued Omeprazole 40 MG Oral Capsule Delayed Release (PriLOSEC)Indic ations:Gastroes ophageal reflux disease without esophagitis TAKE 1 CAPSULE BY MOUTH EVERY DAY 1 HOUR BEFORE THE FIRST MEAL OF THE DAY 90 Capsule 1 06/29/20 24 025 Discontinued documented as of this encounter (statuses as of 12/30/2024) Active Problems Problem Noted Date Diagnosed Date [...] as of this encounter (statuses as of 12/30/2024) Resolved Problems Problem Noted Date Diagnosed Date [...] as of this encounter (statuses as of 12/30/2024) Immunizations Name Administration Dates Next Due COVID-19 mRNA, LNP-s, No Pre serve, 2-Dose Series (Moderna) 12/13/2020,11/15/2020 Pneumococcal Conjugate Vacci ne, 20-valent ([id number]) 08/05/2022 Pneumococcal Polysaccharide PPV23 (Pneumovax) 02/03/2019 Seasonal [...] encounter Miscellaneous Notes * Telephone Encounter - Ken Gar - 12/30/2024 1:36 PM EST Received message from [facility] regarding patient needing an appointment. Patient was notified. Successfully contacted patient and provided [facility] message. * Telephone Encounter - Tatyana Medrano [facility] - 12/28/2024 7:20 AM ESTSigned Prescriptions: Disp Refills Amitriptyline HCl 10 MG Oral Tablet (Elavi*180 Ta*0 Sig: TAKE 2 TABLETS BY MOUTH AT BEDTIME Authorizing Provider: VANE HARDEN Ordering User: TATYANA MEDRANO Omeprazole 40 MG Oral Capsule Delayed Rele*90 Cap*0 Sig: TAKE 1 CAPSULE BY MOUTH EVERY DAY 1 HOUR BEFORE THE FIRST MEAL OF THE DAY Authorizing Provider: STEPHEN HARDEN Ordering User: TATYANA MEDRANO * Telephone Encounter - Tatyana Medrano RP - 12/28/2024 7:19 AM EST Please contact patient so that an appointment can be scheduled with her PRIMARY CARE provider. Refill authorized to hold patient over in the mean time. Last Visit: 12/15/2023 (in office), Visit date not found (telemedicine) Next Visit: Visit date not found Thank you, Tatyana Medrano, AnaD. Clinical Pharmacist [facility] 12/28/2024, 7:19 AM documented in this encounter Plan of Treatment Health Maintenance Due Date Last Done Comments [...] Additional history exists CKD PHOS USE SMARTSET 67300 11/13/202411/03, 08/05/2022, 08/28/2021, Additional history exists HbA1c 11/13/2024 11/13/2023, 01/2022, 01/31/2022, Additional history exists CKD HGB USE SMARTSET 78056 12/17/202412/17, 12/17/2023, 11/13/2023, Additional history exists Cervical Cancer Screening 01/31/2025 Pap Smear 01/31/2025 01/31/2022, 10/04, 11/15/2014, Additional history exists Colonoscopy 04/02/2026 04/02/2016, 04/02/2016 Colorectal Cancer Screening 04/02/2026 DTap/Tdap Vaccines (4 - Td or Tdap) 07/31/2026 07/31/2016, 03/28/2011, 02/02/2004, Additional history exists Lipid Panel 11/13/2028 11/13/2023, 1001/2022, 08/28/2021, Additional history exists RETIRED - COLONOSCOPY-EVERY 5 YRS AGES 18-100 Discontinued 04/02/2016, 04/02/2016 Zoster Vaccines Completed 05/01/2020, 11/17/2019 Pneumococcal Vaccine: 50+ Years Completed 08/05/2022, 02/03/2019 HPV (Gardasil) Vaccine Aged Out No lo nger eligible based on patient's age to complete this topic MENINGOCOCCAL (MENACTRA/MENVEO) Aged Out No longer eligible based on patient's age to complete this topic Meningitis B Vaccine (Bexsero/Trumemba) Aged Out No longer eligible based on patient's age to complete this topic documented as of this encounter Medical Devices Implanted Type Area Field Specialist Device Identifier Shelf Expiration Date Model / Serial / Lot Lens 20.0 Mx60e - [id number] - [id number] Implanted:Qty: 1 on 11/26/2022 by Delbert Mason MD at OR [facility] Right: Eye [employer]OM[employer] 10/02/2025 [id number]-67.0 / [id number] / Envista 20.5 Implanted:Qty: 1 on 12/10/2022 by Delbert Mason MD at OR [facility] Left: Eye 07/03/2025 [id number] / [id number] / documented as of this encounter Visit Diagnoses Diagnosis Persistent insomnia Persistent disorder of initiating or maintaining sleep Tension headache Gastroesophageal reflux disease without esophagitis Esophageal reflux documented in this encounter Advance Directives Documents on File Type Date Recorded 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 No Care Teams Senior Loan Processor Relationship Specialty Start Date End Date Vane Harden MD [address] [place] [address] PCP - General Internal Medicine 11/02/16 documented as of this encounter
--- OUTSIDE RECORDS SUMMARY | 2025-01-13 05:18 | External Medical Summary | Summary of Care ---
Author Name Unknown Organization [facility] Address [address] [place] [address] Phone [phone] Care Team Providers Care Clinical Program Director Name Role Phone Abena Harden MD Primary Care Provider Reason for Visit * Reason Onset Date Comments Health Maintenance 11/16/2024 Encounter Details Date Type Department Care Team (Late st Contact Info) Description 11/16/2024 Telephone General Internal Medicine [facility] [address] [facility] [place] [address] Abena Harden MD [address] [place] [address] Health Maintenance Allergies Active Allergy Reactions Criticality Noted Date Comments Dust 09/13/2016 Nasal congestion Sulfa Antibiotics 04/18/2000 hives Trimethoprim Unknown 05/30/2011 documented as of this encounter (statuses as of 11/16/2024) Medications NASAL SALINE 0.65 % NA SOLNIndications: [...] as of this encounter (statuses as of 11/16/2024) Active Problems Problem Noted Date Diagnosed Date [...] as of this encounter (statuses as of 11/16/2024) Resolved Problems Problem Noted Date Diagnosed Date [...] as of this encounter (statuses as of 11/16/2024) Immunizations Name Administration Dates Next Due COVID-19 mRNA, LNP-s, No Pre serve, 2-Dose Series (Moderna) 12/13/2020,11/15/2020 Pneumococcal Conjugate Vacci ne, 20-valent ([id number]) 08/05/2022 Pneumococcal Polysaccharide PPV23 (Pneumovax) 02/03/2019 Seasonal [...] encounter Miscellaneous Notes * Telephone Encounter - Stacie Mauro LPN - 11/16/2024 12:03 PM EST Care Gaps Comprehensive Care Outreach Last Office/Telemedicine Visit: 12/15/2023 (in office), Visit date not found (telemedicine) Next Office Visit: Visit date not found Hemoglobin AIC Results: Lab Results Component Value Date/Time HEMOGLOBIN A1C - [facility] 5.9 (H) 11/13/2023 10:03 AM HEMOGLOBIN A1C - [facility] 5.9 (H) 08/05/2022 10:07 AM HEMOGLOBIN A1C - [facility] 6.0 (H) 01/31/2022 10:33 AM HEMOGLOBIN A1C - [facility] 5.9 (H) 05/01/2020 10:56 AM HEMOGLOBIN A1C - [facility] 5.8 (H) 10/01/2019 03:45 PM HEMOGLOBIN A1C - [facility] 5.8 (H) 11/05/2018 02:59 PM BP Readings from Last 1 Encounters: 12/24/23 122/81 Reviewed Health Maintenance below: Health Maintenance Topic Date Due Hepatitis C Screening Never done Hepatitis B Vaccine (1 of 3 - 19+ 3-dose series) Never done Depression Monitoring 02/04/2020 Mammogram 11/25/2023 GFR 06/16/2024 Influenza Vaccine (FLU shot) (1) 07/04/2024 COVID-19 Vaccine (2023- season) 2024 Albumin/Creatinine Ratio 11/13/2024 HbA1c 11/13/2024 CKD PHOS USE SMARTSET 69174 11/13/2024 Cervical Cancer Screening 01/31/2025 CKD HGB USE SMARTSET 24940 12/17/2024 [facility] mamm Care Gap Outreach Action Taken: Left message and MyChart message sent documented in this encounter Plan of Treatment Upcoming Encounters Date Type Department Care Team (Late st Contact Info) Description 12/22/2024 10:40 AM EST Telemedicine [facility], [place] [address] [place] [address] Anamika Mckenna MD [address] [place] [address] Health Maintenance Due Date Last Done Comments [...] 08/05/2022, 08/27/2021, Additional history exists Albumin/Creatinine Ratio 11/13/20242 024, 11/07/2022, 01/31/2022, Additional history exists CKD PHOS USE SMARTSET 45579 11/13/202411/03, 08/05/2022, 08/28/2021, Additional history exists HbA1c 11/13/2024 11/13/2023, 01/2022, 01/31/2022, Additional history exists CKD HGB USE SMARTSET 83776 12/17/202412/17, 12/17/2023, 11/13/2023, Additional history exists Cervical Cancer Screening 01/31/2025 Pap Smear 01/31/2025 01/31/2022, 10/04, 11/15/2014, Additional history exists Colonoscopy 04/02/2026 04/02/2016, 04/02/2016 Colorectal Cancer Screening 04/02/2026 DTap/Tdap Vaccines (4 - Td or Tdap) 07/31/2026 07/31/2016, 03/28/2011, 02/02/2004, Additional history exists Lipid Panel 11/13/2028 11/13/2023, 10/0 01/2022, 08/28/2021, Additional history exists RETIRED - [...] this encounter Medical Devices Implanted Type Area Senior Shipping Clerk Device Identifier Shelf Expiration Date Model / Serial / Lot Lens 20.0 Mx60e - [id number] - [id number] Implanted:Qty: 1 on 11/26/2022 by Delbert Mason MD at OR [facility] Right: Eye [employer] LOMB 10/02/2025 MG78X-12.0 / [id number] / Envista 20.5 Implanted:Qty: 1 on 12/10/2022 by Delbert Mason MD at OR [facility] Left: Eye 07/03/2025 MX60E / [id number] / documented as of this encounter Advance Directives Documents on File Type Date Recorded Patient Court Bailiff Expl anation Advance Directives and Living Will [...] Power of Attor mary? No Care Teams Clinical Program Director Relationship Specialty Start Date End Date Abena Harden MD [address] [place] [address] PCP - General Internal Medicine 11/02/16 documented as of this encounter
[2025-01-13] MEDS: ALBUT/IPRATROP 3MG/0.5MG NEB 3 ML VIAL NEB SCH (07:12)
[2025-01-13] MEDS: ACETAMINOPHEN 325 MG TAB PO PRN (07:35)
[2025-01-13] MEDS: methylPREDNISolone 40 MG in SYRINGE 0 ML IV SCH ×2 (07:36→14:06)
[2025-01-13] MEDS: guaiFENesin/DEXTROM SYRUP 100MG/10MG 5ML UDC PO PRN (07:36)
[2025-01-13] MEDS: buPROPion SR 100 MG TABCR PO SCH (07:37)
[2025-01-13] MEDS: FLUoxetine HCL 20 MG CAP PO SCH (07:37)
[2025-01-13] MEDS: PANTOprazole 40 MG TAB PO SCH (07:37)
[2025-01-13] MEDS: BENZONATATE 100 MG CAPSULE PO SCH (07:37)
[2025-01-13] MEDS: CETIRIZINE HCL 10 MG TABLET PO SCH (07:37)
[2025-01-13] MEDS: ENOXAPARIN INJ 40 MG/0.4 ML SYR SQ SCH (07:38)
[2025-01-13] MEDS: DOCUSATE SODIUM 100 MG CAP PO SCH (07:39)
[2025-01-13 08:13] LABS: Anion Gap 9 (3-11); BUN Creatinine Ratio 14.1 (10-20); Blood Urea Nitrogen 12 mg/dl (6-23); Calcium 9.4 mg/dl (8.6-10.3); Carbon Dioxide 24 mmol/L (21-32); Chloride 106 mmol/L (98-107); Glucose 155 mg/dl (70-99(Fasting)); Potassium 3.7 mmol/L (3.5-5.1); Sodium 139 mmol/L (136-145)
[2025-01-13 08:14] LABS: Basophils # (auto) 0.01 K/uL (0.00-0.20); Basophils % (auto) 0.2 %; Hematocrit (blood only) 40.9 % (37.0-47.0); Hemoglobin 13.8 g/dl (12.0-16.0); Immature Granulocytes # (auto) 0.03 K/uL (0.01-0.20); Immature Granulocytes % (auto) 0.5 %; Lymphocytes # (auto) 0.89 K/uL (1.20-3.40); Lymphocytes % (auto) 15.3 %; Mean Corpuscular Hemoglobin 27.8 pg (25.0-34.0); Mean Corpuscular Hgb Conc 33.7 g/dL (32.0-36.0); Mean Corpuscular Volume 82.5 fL (80.0-100.0); Mean Platelet Volume 8.7 fL (9.4-12.4); Monocytes # (auto) 0.08 K/uL (0.11-0.59); Monocytes % (auto) 1.4 %; Neutrophils # (auto) 4.81 K/uL (1.40-6.50); Neutrophils % (auto) 82.6 %; Platelet Count 335 K/uL (130-400); RDW Coefficient of Variation 14.9 % (11.5-14.5); RDW Standard Deviation 45.1 fL (36.4-46.3); Red Blood Count 4.96 M/uL (4.20-5.40); White Blood Count 5.82 K/ul (4.8-10.8)
[2025-01-13 08:20] LABS: Troponin I High Sensitivity < 2.3 pg/ml (0-14)
[2025-01-13] MEDS ORDERED: buPROPion SR 100 MG TABCR PO SCH (09:00)
[2025-01-13] MEDS ORDERED: methylPREDNISolone 125 MG/2 ML VIAL IV SCH (09:00)
[2025-01-13] MEDS: guaiFENesin 600 MG TABCR PO SCH (10:07)
[2025-01-13 10:13] LABS: Estimated Average Glucose 128 mg/dl; Hemoglobin A1C 6.1 % (4.5-5.6)
[2025-01-13] MEDS: HYDROcodone/HOMATROPINE SYRUP 5MG/1.5MG 5ML UDP PO STA (10:49)
[2025-01-13 11:18] LABS: Appearance Urine Clear (Clear); Bilirubin Urine Negative (Negative); Blood Urine Negative (Negative); Color Urine Yellow; Glucose Urine UA Negative (Negative); Ketones Urine 1+ (Negative); Leukocyte Esterase Urine Negative (Negative); Nitrite Urine Negative (Negative); Protein Urine Negative (Negative); Specific Gravity Urine 1.016 (1.000-1.030); Urobilinogen Urine Negative (Negative); pH Urine 6.5 (4.5-7.5)
--- NOTE | 2025-01-13 14:36 | Communication Note ---
Date of Service: January 13, 2025 Evaluated at bedside, reports still feeling tightness in throat to breath--however after additional steroid noted to be better respiratory campos and with less conversational dyspnea EXAM with no wheezing, tightness sounds upper airway RRR, no crackles/rhonchi #laryngitis #Acute hypoxic resp failure likely iso viral URI CTA chest unremarkable except for some atelectasis CT soft tissue neck unremarkable Respiratory BioFire negative, procal negative Increased soludmedrol TID given severity of symptoms on exam Continue alton Agree with H&P plan
[2025-01-13] MEDS: AMITRIPTYLINE HCL 10 MG TAB PO SCH (21:06)
[2025-01-13] MEDS: CEROVITE ADV FORMULA TAB PO SCH (21:07)
[2025-01-13] MEDS: LORazepam 0.5 MG TAB PO PRN (21:10)
--- NOTE | 2025-01-13 22:52 | Electrocardiogram Report ---
Test Reason : Blood Pressure : */* mmHG Vent. Rate : 85 BPM Atrial Rate : 85 BPM P-R Int : 164 ms QRS Dur : 80 ms QT Int : 350 ms P-R-T Axes : 38 30 44 degrees QTcB Int : 416 ms Normal sinus rhythm Cannot rule out Inferior infarct , age undetermined Abnormal ECG When compared with ECG of 20-Dec-2016 15:36, T wave inversion more evident in Anterior leads Confirmed by Adria Pearl ([id number]) on 01/13/2025 10:52:13 PM Referred By: REFERRED SELF Confirmed By: Adria Pearl
[2025-01-14 06:22] LABS: Hematocrit (blood only) 41.5 % (37.0-47.0); Hemoglobin 13.3 g/dl (12.0-16.0); Mean Corpuscular Hemoglobin 27.1 pg (25.0-34.0); Mean Corpuscular Volume 84.5 fL (80.0-100.0); Mean Platelet Volume 8.6 fL (9.4-12.4); Platelet Count 361 K/uL (130-400); RDW Coefficient of Variation 15.6 % (11.5-14.5); RDW Standard Deviation 47.7 fL (36.4-46.3); Red Blood Count 4.91 M/uL (4.20-5.40); White Blood Count 16.13 K/ul (4.8-10.8)
[2025-01-14 06:39] LABS: BUN Creatinine Ratio 15.6 (10-20); Calcium 9.6 mg/dl (8.6-10.3); Creatinine Clr Calc Pharmacy 75.1 ml/min; Potassium 4.5 mmol/L (3.5-5.1)
--- NOTE | 2025-01-14 12:48 | Hospitalist Progress Note ---
Date of Service January 14, 2025 Assessment & Plan (1) SOB (shortness of breath): Plan: Ms. Ware is a 59-year-old female with past medical history significant for prediabetes, seasonal allergic rhinitis, extrinsic asthma, obstructive sleep apnea, morbid obesity, GERD, CKD stage III, history of calculus of kidney, history of migraines, moderate depression, presents with shortness of breath and cough, admitted for acute hypoxic resp failure iso likely viral URI and laryngitis. Improving with steroids and supportive care. #laryngitis #Acute hypoxic resp failure likely iso viral URI CTA chest unremarkable except for some atelectasis CT soft tissue neck unremarkable Respiratory BioFire negative, procal negative Reduced soludmedrol BID, plan for daily tomorrow and possible d/c with steroid burst Continue duonebs prn now mucinex bid #Obstructive sleep apnea CPAP nightly #Morbid obesity Counseling with PCP #GERD on omeprazole #Depression On fluoxetine and bupropion #Prediabetes HgbA1c 6.1% DVT prophylaxis Lovenox Disposition Med/telemetry Full code Admission and Anticipated Discharge Date Admission Date: January 13, 2025 Subjective Evaluated at bedside reports feeling much better than day prior reports improvement in dyspnea and increased ease with sputum production for cough--noting thinner mucus Denies subjective fevers, worsening symptoms, or any other acute concerns Physical Exam Constitutional: resting comfortably in bed, no acute concerns, some conversation dyspnea noted after 1-2 sentences Respiratory: normal respiratory effort, lungs clear to auscultation Cardiovascular: RRR, no murmur, no edema Gastrointestinal (Abdomen): normal bowel sounds, soft, nontender, no hepatosplenomegaly Results & Data Results & Data Vital Signs (Past 12 Hours) Vital Signs Temp Pulse Pulse Resp BP BP Pulse Ox 01/14/25 09:46 74 01/14/25 07:59 36.4 C L 78 18 125/62 92 01/14/25 07:43 01/14/25 04:24 36.5 C 78 20 108/61 92 01/14/25 03:21 84 24 94 O2 Del Method O2 Flow Rate 01/14/25 09:46 01/14/25 07:59 BiPAP 2 01/14/25 07:43 Nasal Cannula 2 01/14/25 04:24 Nasal Cannula 2 01/14/25 03:21 2 Laboratory Results Short CBC 01/14/25 Range/Units 05:22 WBC 16.13 H D (4.8-10.8) K/ul Hgb 13.3 (12.0-16.0) g/dl Hct 41.5 (37.0-47.0) % Plt Count 361 (130-400) K/uL BMP 01/14/25 05:22 Sodium 138 Potassium 4.5 D Chloride 105 Carbon Dioxide 27 BUN 17 Creatinine 1.09 Glucose 157 H Calcium 9.6 Medications Administered Home Medications Medication Instructions Recorded Confirmed Last Taken Lactobacil.acidophilus-Bifido.animalis 1 cap PO QAM 11/25/23 01/12/25 01/12/25 5 billion cell sprinkle capsule (Probiotic) amitriptyline 10 mg tablet 20 mg PO 11/25/23 01/12/25 01/11/25 bupropion HCl 100 mg tablet,12 hr 100 mg PO QA 11/25/23 01/13/25 01/12/25 sustained-release cetirizine 10 mg tablet (Zyrtec) 10 mg PO [facility] 11/25/23 01/12/25 01/12/25 cinnamon bark 500 mg capsule 500 mg PO HS 11/25/23 01/12/25 01/11/25 (Cinnamon) cranberry concentrate-ascorbic 2 cap PO QA 11/25/23 01/12/25 01/12/25 acid 140 mg-100 mg capsule (Cranberry Plus Vitamin C) docusate sodium 100 mg capsule 100 mg PO QA 11/25/23 01/12/25 01/12/25 (Colace) fluoxetine 40 mg capsule 40 mg PO QA 11/25/23 01/12/25 01/12/25 glucosamine 750 qd-zpjvajlbcwk-ouy 1 tab PO 3XWK 11/25/23 01/12/25 01/12/25 no1 644 mg-C 30 mg-khanh 1 mg tablet (Osteo Bi-Flex Triple Strength) lorazepam 1 mg tablet 0.5 - 1 mg PO HS PRN SLEEP/ANXIETY 11/25/23 01/12/25 01/05/24 qgpdrmzkcara-yztdtzfl-wktere 1 tab PO HS 11/25/23 01/12/25 01/11/25 tablet (Multivitamin 50 Plus tablet) omeprazole 40 mg capsule,delayed 40 mg PO QAM 11/25/23 01/12/25 01/12/25 release turmeric 400 mg capsule 400 mg PO HS 11/25/23 01/12/25 01/11/25 phenazopyridine 200 mg tablet 200 mg PO Q8H PRN bladder 12/30/23 01/12/25 01/08/24 (Pyridium) irritation acetaminophen 500 mg tablet 1,000 mg PO DIRECTED PRN 01/12/25 01/12/25 Unknown (Tylenol Extra Strength) PAIN/FEVER albuterol sulfate 90 mcg/actuation 2 puff inhalation QID PRN 01/12/25 01/12/25 Unknown aerosol inhaler Shortness Of Breath Or Wheezing bupropion HCl 200 mg tablet,12 hr 200 mg PO QAM 01/12/25 01/12/25 01/12/25 sustained-release Active Medications Generic Name Dose Route Start Last Admin Trade Name Freq PRN Reason Stop Dose Admin Acetaminophen 650 mg 01/13/25 02:38 01/14/25 11:43 Acetaminophen 325 Mg Tab PO 02/12/25 02:37 650 mg Q4H PRN Administration Pain or Fever Amitriptyline HCl 20 mg 01/13/25 21:00 01/13/25 21:06 Amitriptyline Hcl 10 Mg Tab PO 02/12/25 20:59 20 mg HS KENNEDY Administration Benzonatate 100 mg 01/13/25 09:00 01/14/25 09:12 Benzonatate 100 Mg Capsule PO 02/12/25 08:59 100 mg TID KENNEDY Administration Bupropion HCl 300 mg 01/13/25 09:00 01/14/25 09:11 Bupropion Sr 100 Mg Tabcr PO 02/12/25 08:59 300 mg QAM KENNEDY Administration Cetirizine HCl 10 mg 01/13/25 09:00 01/14/25 09:12 Cetirizine Hcl 10 Mg Tablet PO 02/12/25 08:59 10 mg QAM KENNEDY Administration Docusate Sodium 100 mg 01/13/25 09:00 01/14/25 12:15 Docusate Sodium 100 Mg Cap PO 02/12/25 08:59 Not Given QAM KENNEDY Enoxaparin Sodium 40 mg 01/13/25 09:00 01/14/25 09:10 Enoxaparin Inj 40 Mg/0.4 Ml Syr SQ 02/12/25 08:59 40 mg Q12H KENNEDY Administration Fluoxetine HCl 40 mg 01/13/25 09:00 01/14/25 09:11 Fluoxetine Hcl 20 Mg Cap PO 02/12/25 08:59 40 mg QAM KENNEDY Administration Guaifenesin 600 mg 01/13/25 09:00 01/14/25 09:11 Guaifenesin 600 Mg Tabcr PO 02/12/25 08:59 600 mg Q12 KENNEDY Administration Guaifenesin/Dextromethorphan 5 ml 01/13/25 02:38 01/14/25 09:11 Guaifenesin/Dextrom Syrup 100mg/10mg 5ml Udc PO 02/12/25 02:37 5 ml Q6H PRN Administration Cough Lorazepam 0.5 mg 01/13/25 02:55 01/13/25 21:10 Lorazepam 0.5 Mg Tab PO 02/12/25 02:54 0.5 mg HS PRN Administration SLEEP/ANXIETY Multivitamins/Minerals 1 tab 01/13/25 21:00 01/13/25 21:07 Cerovite Adv Formula Tab PO 02/12/25 20:59 1 tab HS KENNEDY Administration Pantoprazole Sodium 40 mg 01/13/25 09:00 01/14/25 09:12 Pantoprazole 40 Mg Tab PO 02/12/25 08:59 40 mg QAM KENNEDY Administration
[2025-01-14] MEDS: methylPREDNISolone 40 MG in SYRINGE 0 ML IV SCH (20:25)
[2025-01-15 06:34] LABS: Hematocrit (blood only) 40.9 % (37.0-47.0); Hemoglobin 13.4 g/dl (12.0-16.0); Mean Corpuscular Hemoglobin 27.7 pg (25.0-34.0); Mean Corpuscular Hgb Conc 32.8 g/dL (32.0-36.0); Mean Corpuscular Volume 84.5 fL (80.0-100.0); Mean Platelet Volume 8.6 fL (9.4-12.4); Platelet Count 349 K/uL (130-400); RDW Coefficient of Variation 15.4 % (11.5-14.5); RDW Standard Deviation 47.2 fL (36.4-46.3); Red Blood Count 4.84 M/uL (4.20-5.40); White Blood Count 14.57 K/ul (4.8-10.8)
[2025-01-15 07:14] LABS: BUN Creatinine Ratio 22.7 (10-20); Calcium 9.2 mg/dl (8.6-10.3); Creatinine Clr Calc Pharmacy 84.4 ml/min; Potassium 4.2 mmol/L (3.5-5.1)
[2025-01-15 08:07] VITALS: TEMP 97.7
--- NOTE | 2025-01-15 09:12 | Discharge Summary ---
Discharge Summary Date of Service January 15, 2025 Principal Dx & Hospital Course #1 = Principal Diagnosis (1) SOB (shortness of breath): Ms. Ware is a 59-year-old female with past medical history significant for prediabetes, seasonal allergic rhinitis, extrinsic asthma, obstructive sleep apnea, morbid obesity, GERD, CKD stage III, history of calculus of kidney, history of migraines, moderate depression, presents with shortness of breath and cough, admitted for acute hypoxic resp failure iso likely viral URI and laryngitis. Patient improved with steroids and supportive care. On day of discharge, she was noted to have no need for oxygen. Patient discharged with continued prednisone course for 3 more days and recommended supportive care at home. She was eating without difficulty, drinking fluids, and independent in her care. #laryngitis #Acute hypoxic resp failure likely iso viral URI CTA chest unremarkable except for some atelectasis CT soft tissue neck unremarkable Respiratory BioFire negative, procal negative Start pred 40mg daily x 3 more doses mucinex bid #Obstructive sleep apnea CPAP nightly #Morbid obesity Counseling with PCP #GERD on omeprazole #Depression On fluoxetine and bupropion #Prediabetes HgbA1c 6.1% Notes For Next Care Provider Medication Changes From Visit Prednisone 40mg x 3 more days Tessalon pearles Mucinex bid x 7 days Admission HPI Per Admitting Provider 59-year-old female with past medical history significant for prediabetes, seasonal allergic rhinitis, extrinsic asthma, obstructive sleep apnea, morbid obesity, GERD, CKD stage III, history of calculus of kidney, history of migraines, moderate depression, presents with shortness of breath and cough. Patient states she has influenza about 2 weeks ago. Since then she has dry cough. But since last 2 days feeling short of breath which got worse today and came to the ER. In the ER she was having wheezing mostly from the upper respiratory. Voice was soft. She was given Decadron and nebs. And CT soft tissue neck and CTA chest unremarkable. She was saturating 87% room air re quiring 2 L oxygen. Initially was tachypneic. Currently hemodynamics are okay. Currently resting comfortably. Still speaking in low voice. Says she was having some low-grade fevers. Denies any headache. No neck pain. Has sore throat from coughing. Has some chest pain from coughing. No nausea. Appetite is okay. No abdominal pain. Normal bowel and bladder movements. Past medical history. As mentioned above. Past surgical history. Colonoscopy. EGD with endoscopic ultrasound. EGD. Fragment kidney stone by shockwave. Laparoscopic cholecystectomy. Ligation oviducts. Appendectomy. Bilateral cataracts. Social history. No smoking. Alcohol rarely. No drug use. Family history. Father had AL. Hypertension. Hyperlipidemia. Thyroid disorder. Mother has allergies. Kidney stones. Brother has diabetes. Admission Exam Per Admitting Provider General- Not in distress Head- atraumatic Eyes- PERRL. ENT- oropharynx clear Neck- supple, no JVD. Lungs- clear to auscultation no wheezing or crackles Heart- regular rhythm; no murmur, no gallop. Abdomen- normal bowel sounds, soft, nontender, no distension Extremities- no pretibial edema, no erythema seen Neuro- alert, oriented PERRL, no facial palsy; no dysarthria; moves extremities Discharge Exam Constitutional WD/WN, vitals as above hoarse voice Respiratory normal respiratory effort, lungs clear to auscultation Cardiovascular RRR, no murmur, no edema Gastrointestinal (Abdomen) normal bowel sounds, soft, nontender, no hepatosplenomegaly Updated Medication List Medication Instructions Recorded Confirmed Type Lactobacil.acidophilus-Bifido.animalis 1 cap PO QAM 11/25/23 01/12/25 History 5 billion cell sprinkle capsule (Probiotic) amitriptyline 10 mg tablet 20 mg PO HS 11/25/23 01/12/25 History bupropion HCl 100 mg tablet,12 hr 100 mg PO QAM 11/25/23 01/13/25 History sustained-release cetirizine 10 mg tablet (Zyrtec) 10 mg PO QAM 11/25/23 01/12/25 History cinnamon bark 500 mg capsule 500 mg PO HS 11/25/23 01/12/25 History (Cinnamon) cranberry concentrate-ascorbic 2 cap PO QAM 11/25/23 01/12/25 History acid 140 mg-100 mg capsule (Cranberry Plus Vitamin C) docusate sodium 100 mg capsule 100 mg PO QAM 11/25/23 01/12/25 History (Colace) fluoxetine 40 mg capsule 40 mg PO QAM 11/25/23 01/12/25 History glucosamine 750 fe-jsbvxpkxnrs-[id number] 1 tab PO 3XWK 11/25/23 01/12/25 History no1 644 mg-C 30 mg-khanh 1 mg tablet (Osteo Bi-Flex Triple Strength) lorazepam 1 mg tablet 0.5 - 1 mg PO HS PRN SLEEP/ANXIETY 11/25/23 01/12/25 History quylgtinttjy-zqdyeajf-edgyej 1 tab PO HS 11/25/23 01/12/25 History tablet (Multivitamin 50 Plus tablet) omeprazole 40 mg capsule,delayed 40 mg PO QAM 11/25/23 01/12/25 History release turmeric 400 mg capsule 400 mg PO HS 11/25/23 01/12/25 History phenazopyridine 200 mg tablet 200 mg PO Q8H PRN bladder 12/30/23 01/12/25 History (Pyridium) irritation acetaminophen 500 mg tablet 1,000 mg PO DIRECTED PRN 01/12/25 01/12/25 History (Tylenol Extra Strength) PAIN/FEVER bupropion HCl 200 mg tablet,12 hr 200 mg PO QAM 01/12/25 01/12/25 History sustained-release albuterol sulfate 90 mcg/actuation 2 puff inhalation QID PRN 01/15/25 Rx aerosol inhaler Shortness Of Breath Or Wheezing #8.5 grams benzonatate 100 mg capsule 100 mg PO TID 7 days #21 caps 01/15/25 Rx guaifenesin 600 mg tablet, 600 mg PO Q12 #14 tabs 01/15/25 Rx extended release 12 hr (Mucinex) prednisone 20 mg tablet 40 mg (2 x 20 mg) PO DAILY 3 days 01/15/25 Rx #6 tabs Hospital Stay Data Consultations 01/12/25 22:11 ED Decision to Admit Stat Diagnostic Imagining Performed 01/12/25 20:24 CT angio chest PE protocol Stat CT soft tissue neck w con Stat Pending Results Patient Have Any Pending Studies at Discharge: No Discharge Instructions Given to Patient (Per Discharging Provider) You were admitted for laryngitis and bronchitis. You were treated with steroids and breathing treatments. It is recommended your continue 3 more days of oral steroid, once daily in the morning starting tomorrow You can also continue mucinex two times a day, as well as use the tessalon pearles for cough suppressant. Other over the counter, supportive care will also be useful to aid in recovery Total Time Total Time Spent Total Time Spent (In Minutes): 45
[2025-01-15 12:16] VITALS: BP 122/74
[2025-01-15 12:21] VITALS: PULSE 83; RESP 18; O2SAT 90
--- NOTE | 2025-01-18 09:57 | Coding Query ---
CODING QUERY To promote full compliance with coding requirements relating to patient care, provider participation is requested in all cases of waiter/waitress dining car uncertainty. Please assist us with the question(s) below: Coding Question(s): It is stated through several notes "acute hypoxic resp failure iso likely viral URI and laryngitis." Please clarify if the following diagnoses are current or ruled out. Physician's Response(s): Acute Hypoxic Resp Failure ( ) Current Dx ( ) R/O ( x ) POA ( ) Not POA Viral URI ( ) Current Dx ( ) R/O ( x ) POA ( ) Not POA Other: Thank you Sil Patel Principal Diagnosis: "that condition established after study, to be chiefly responsible for occasioning the admission of the patient to the hospital for care." Co-Existing Principal Diagnosis: "when two or more diagnoses equally meet the criteria for principal diagnosis as determined by the circumstances of admission, diagnostic work up, and/or therapy provided, and the Alphabetic Index, Tabular List, or another coding guideline does not provide sequencing direction, any one of the diagnoses may be sequenced first." "When the physician has documented what appears to be a current diagnosis in the body of the record, but has not included the diagnosis in the final diagnostic statement, the physician should be asked whether the diagnosis should be added." (Source [facility]oding [facility] 2 QTR90. p3-4) DARIEL
== END 2025-01-15 14:17 | disposition home or self-care (01) | DRG 189 ==
LOC: ED 19:55 → 2N 01-13 01:13